=== PATIENT | female | born 1990 | race Caucasian/White ===

== ENCOUNTER 2017-04-05 20:23 | Emergency (ER) | payer SELFPAY ==
[~2017-04-05] VITALS: Ht 162.6 cm; Wt 136.1 kg
[~2017-04-05 20:23] MED LIST: AMLO5TAB2 PO; AMOX500C2 PO; CPH250CIP PO; CPR500T PO; CYCL10TA9 PO; DCS100C PO; FERR-57 PO; HYDR-2854 PO; HYDR-757 PO; IBP600T1 PO; METR500T PO; NAPR-243 PO; PNV1CAPS13 PO; SULFA TOP
[2017-04-05] MEDS ORDERED: IBUPROFEN 800 MG (MOTRIN) TAB PO STA (21:28)
[2017-04-05] MEDS ORDERED: IBUP-1780 PO (21:35)
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
[2017-04-05 21:45] VITALS: BP 132/76
--- NOTE | 2017-04-05 21:48 | Diagnostic Imaging Report ---
EXAM: Shoulder, right, 3 views. INDICATION: Shoulder injury. COMPARISON: None. FINDINGS: No fracture or malalignment. Soft tissue shadows are unremarkable. IMPRESSION: Negative right shoulder radiographs. Dictated by: Dictated on workstation # [id number]
--- OUTSIDE RECORDS SUMMARY | 2017-04-13 02:13 | XMS REPORT ---
Author Author SKY MACHADO [facility] eClinicalWorks Address Unknown Phone Unavailable Care Team Providers Care Industrial Court Magistrate Name Role Phone SKY MACHADO Unavailable Allergies, Adverse Reactions, Alerts Substance Reaction Event Type N.K.D.A. 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) w/o abn findings Z01.419 Active Assessment Morbid (severe) obesity due to excess calories E66.01 Active Problem Acanthosis nigricans L83 Active Problem Insomnia, unspecified G47.00 Active Problem History of female hirsutism Z87.898 Active Problem Morbid (severe) obesity due to excess calories E66.01 Active Problem IUD (intrauterine device) in place Z97.5 Active Problem Dysmetabolic syndrome E88.81 Active Problem Arthropathy M12.9 Active Assessment History of irregular menstrual bleeding Z87.42 Active Assessment Acanthosis nigricans L83 Active Assessment History of female hirsutism Z87.898 Active Assessment Vaginal discharge N89.8 Active Medications Medication Code System Code Instructions Start Date End Date Status Dosage IUD's NDC 0 not defined Flagyl [facility] [address]-77 500 MG Orally 2 times a day Jul 23, 2015 Jul 30, 2015 1 tablet Procedures Procedure Coding System Code Date GLYCATED HEMOGLOBIN TEST CPT-4 43776 Jul 23, 2015 ASSAY OF TOTAL TESTOSTERONE CPT-4 86134 Jul 23, 2015 COMPREHEN METABOLIC PANEL CPT-4 79909 Jul 23, 2015 Preventive Care Est Pt. Age 18-39 CPT-4 08042 Jul 23, 2015 VENIPUNCT, ROUTINE* CPT-4 36947 Jul 23, 2015 GONADOTROPIN (FSH) CPT-4 14821 Jul 23, 2015 GONADOTROPIN (LH) CPT-4 12350 Jul 23, 2015 DEHYDROEPIANDROSTERONE CPT-4 13360 Jul 23, 2015 ASSAY OF PROLACTIN CPT-4 89220 Jul 23, 2015 Vital Signs Date/Time: Jul 23, 2015 Temperature 97.0 F Weight 415.3 lbs Height 64 in BMI 71.28 Index Blood Pressure Diastolic 80 mmHg Blood Pressure Systolic 126 mmHg Results Name Result Date Reference Range Unit Abnormality Flag ROUTINE VENIPUNCTURE Summary Purpose eClinicalWorks Submission
--- OUTSIDE RECORDS SUMMARY | 2017-04-13 02:13 | XMS REPORT ---
Author Author SKY MACHADO [facility] eClinicalWorks Address Unknown Phone Unavailable Care Team Providers Care Sulfur Burner Name Role Phone SKY MACHADO Unavailable Allergies No Known Allergies Problems Problem Type Condition Code Onset Dates Condition Status Problem Acanthosis nigricans L83 Active Problem Insomnia, unspecified G47.00 Active Problem History of female hirsutism Z87.898 Active Problem Morbid (severe) obesity due to excess calories E66.01 Active Problem IUD (intrauterine device) in place Z97.5 Active Problem Dysmetabolic syndrome E88.81 Active Problem Arthropathy M12.9 Active Medications No Known Medications Results No Known Results Summary Purpose eClinicalWorks Submission
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
--- OUTSIDE RECORDS SUMMARY | 2017-04-13 02:13 | XMS REPORT ---
Author Author SKY MACHADO [facility] eClinicalWorks Address Unknown Phone Unavailable Care Team Providers Care Sales Representative Raw Fibers Name Role Phone SKY MACHADO Unavailable Allergies, Adverse Reactions, Alerts Substance Reaction Event Type N.K.D.A. Info Not Available Non Drug Allergy Problems Problem Type Condition Code Onset Dates Condition Status Assessment Weight gain R63.5 Active Assessment Urinary urgency R39.15 Active Assessment Morbid (severe) obesity due to excess calories E66.01 Active Problem Dysmetabolic syndrome E88.81 Active Problem Arthropathy M12.9 Active Problem Insomnia, unspecified G47.00 Active Assessment test negative Z32.02 Active Assessment Urinary frequency R35.0 Active Problem Morbid (severe) obesity due to excess calories E66.01 Active Problem IUD (intrauterine device) in place Z97.5 Active Assessment Vaginal discharge N89.8 Active Assessment Pap smear for cervical cancer screening Z12.4 Active Assessment Abdominal pressure R10.9 Active Assessment Screening for STD (sexually transmitted disease) Z11.3 Active Assessment IUD (intrauterine device) in place Z97.5 Active Medications Medication Code System Code Instructions Start Date End Date Status Dosage IUD's NDC 0 not defined Procedures Procedure Coding System Code Date VENIPUNCT, ROUTINE* CPT-4 77372 Jul 21, 2015 Office Visit, Est Pt., Level 4 CPT-4 19341 Jul 21, 2015 CHORIONIC GONADOTROPIN ASSAY CPT-4 38913 Jul 21, 2015 URINALYSIS, AUTO, W/O SCOPE CPT-4 80526 Jul 21, 2015 URINE TEST CPT-4 46881 Jul 21, 2015 ACUTE HEPATITIS PANEL CPT-4 09426 Jul 21, 2015 SPECIMEN HANDLING CPT-4 66241 Jul 21, 2015 CULTURE, BACTERIA, OTHER CPT-4 25435 Jul 21, 2015 ASSAY THYROID STIM HORMONE CPT-4 27378 Jul 21, 2015 URINE CULTURE/COLONY COUNT CPT-4 84376 Jul 21, 2015 TRICHOMONAS VAGIN, DIR PROBE CPT-4 62225 Jul 21, 2015 No Charge CPT-4 56674 Jul 21, 2015 Vital Signs Date/Time: Jul 21, 2015 Cardiac Monitoring Heart Rate 84 bpm Weight 418.3 lbs Height 64 in BMI 71.79 Index Blood Pressure Diastolic 86 mmHg Blood Pressure Systolic 138 mmHg Results Name Result Date Reference Range Unit Abnormality Flag TEST, URINE (IN HOUSE) TSH Summary Purpose eClinicalWorks Submission
== END 2017-04-05 21:45 | disposition home or self-care (01) ==
LOC: EDUNIT# 20:23 → ER 20:27
DX: S46.911A Strain of unspecified muscle, fascia and tendon at shoulder and upper arm level, right arm, initial encounter (principal); F17.200 Nicotine dependence, unspecified, uncomplicated; Y09 Assault by unspecified means
CPT/HCPCS: 73030; 99283

== ENCOUNTER 2018-11-05 19:40 | Emergency (ER) | payer SELFPAY ==
[~2018-11-05] VITALS: Ht 162.6 cm; Wt 154.2 kg
--- OUTSIDE RECORDS SUMMARY | 2018-11-05 19:45 | XMS REPORT ---
Author Author [facility] Address [address] [place] [address] Care Team Providers Care Pyrotechnics Press Tender Name Role Phone ANNA LIM Unavailable PROBLEMS Type Condition ICD9-CM Code RHL92-WL Code Onset Dates Condition Status SNOMED Code Problem Accessory skin tags Q82.8 Active 71014129 Problem History of female hirsutism Z87.898 Active 399913371 Problem Morbid (severe) obesity due to excess calories E66.01 Active 879607859 Problem Acanthosis nigricans L83 Active 803953989 Problem Dysmetabolic syndrome E88.81 Active 492168735 ALLERGIES No Known Allergies ENCOUNTERS Encounter Location Date Diagnosis [facility] [id number] [place] [address] 15 Jul, 2018 [facility] [id number] [place] [address] Jul, Body mass index (BMI) 70 or greater, adult Z68.45 and Morbid (severe) obesity due to excess calories E66.01 [place] [id number] [place] [address] Apr, Dysuria R30.0 ; History of female hirsutism Z87.898 ; Morbid (severe) obesity due to excess calories E66.01 and Body mass index (BMI) 70 or greater, adult Z68.45 [place] [address] [address] Nov, Accessory skin tags Q82.8 and Body mass index (BMI) 70 or greater, adult Z68.45 [place] [id number] [place] [address]- [address] 26 Sep, 2016 Encounter for IUD removal Z30.432 and Family planning counseling Z30.09 [facility] [address], [place] [address] 18 Sep, 2016 Screen for STD (sexually transmitted disease) Z11.3 ; Dysuria R30.0 ; Trichomoniasis of vagina A59.01 and Acute cystitis with hematuria N30.01 [facility] [address] [place] [id number] 06 Feb, 2016 Dental examination Z01.20 [facility] [id number] [place] [address]- [address] 17 Jul, 2015 [place] [address] [address] 05 Jul, 2015 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) (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) w/o abn findings Z01.419 ; Morbid (severe) obesity due to excess calories E66.01 ; Family history of diabetes mellitus Z83.3 ; Vaginal discharge N89.8 ; History of female hirsutism Z87.898 ; Acanthosis nigricans L83 and History of irregular menstrual bleeding Z87.42 [facility] [address] [place] [address] 03 Jul, 2015 test negative Z32.02 ; Urinary frequency R35.0 ; Urinary urgency R39.15 ; Morbid (severe) obesity due to excess calories E66.01 ; Weight gain R63.5 ; IUD (intrauterine device) in place Z97.5 ; Abdominal pressure R10.9 ; Pap smear for cervical cancer screening Z12.4 ; Vaginal discharge N89.8 and Screening for STD sexually transmitted disease Z11.3 [place] [address] [place] [address] Dec, [facility] [address] [address] January, [facility] [id number] [place] [address] January, [facility] [id number] [place] [address] Dec, [facility] [place] [facility] [address] [id number] [place] [address] Dec, [facility] [place] [facility] [address] [id number] [place] [address] Nov, [facility] [place] [facility] [address] [facility] [id number] [place] [address] Nov, [facility] [place] [facility] [address] [id number] [place] [address] Nov, [facility] [place] [facility] [address] [id number] [place] [address] Nov, [facility] [place] [facility] [address] [id number] [place] [address] Nov, [facility] [place] [facility] [address] [id number] [place] [address] Nov, [facility] [place] [facility] [address] [id number] [place] [address] Oct, [facility] [place] [facility] [address] [id number] [place] [address] Oct, [facility] [place] [facility] [address] [id number] [place] [address] Sep, [facility] [place] [facility] [address] [id number] [place] [address] Sep, [facility] [place] [facility] [address] [id number] [place] [address] Aug, [facility] [place] [facility] [address] [id number] [place] [address] Aug, [facility] [place] [facility] [address] [id number] [place] [address] Jul, [facility] [place] [facility] [address] [facility] [id number] [place] [address] Jul, [facility] [place] [facility] [address] [facility] [id number] [place] [address] 03 May, 2013 [facility] [address] [facility] [id number] [address] 14 Aug, 2012 [facility] [address] [facility] [id number] [address] 14 Aug, 2012 [facility] [address] [facility] [id number] [address] 13 May, 2012 [facility] [address] [facility] [id number] [address] 13 May, 2012 IMMUNIZATIONS No Known Immunizations SOCIAL HISTORY Never Assessed REASON FOR VISIT follow up, had been here in April to discuss her weight issues Estephania Finn MA, Is taking OTC medication called true vision. PLAN OF CARE Activity Details Follow Up 3 Months Reason:[facility] VITAL SIGNS Height 64 in 2018-07-26 Weight 448.8 lbs 2018-07-26 Temperature 97.7 degrees Fahrenheit 2018-07-26 Heart Rate 88 bpm 2018-07-26 Respiratory Rate 20 2018-07-26 BMI 77.03 kg/m2 2018-07-26 Blood pressure systolic 138 mmHg 2018-07-26 Blood pressure diastolic 76 mmHg 2018-07-26 MEDICATIONS Medication Instructions Dosage Frequency Start Date End Date Duration Status Ibuprofen 800 MG Orally q 8 hours Active RESULTS No Results PROCEDURES No Known procedures INSTRUCTIONS MEDICATIONS ADMINISTERED No Known Medications MEDICAL (GENERAL) HISTORY Type Description Date Medical History Obesiety Medical History Insulin Resistant, pt reported Surgical History section x 1 Hospitalization History child only
--- OUTSIDE RECORDS SUMMARY | 2018-11-05 19:46 | XMS REPORT ---
Author Author MOI BRIAN Organization [facility] Address [address] [place] [address] Care Team Providers Care French Teacher Name Role Phone BRIAN PRATER Unavailable PROBLEMS Type Condition ICD9-CM Code ZHP61-II Code Onset Dates Condition Status SNOMED Code Problem Acanthosis nigricans L83 Active 132968005 Problem History of female hirsutism Z87.898 Active 582738096 Problem Morbid (severe) obesity due to excess calories E66.01 Active 048151514 Problem Dysmetabolic syndrome E88.81 Active 274219643 ALLERGIES Substance Reaction Event Type Date Status N.K.D.A. Unknown Non Drug Allergy Sep, Unknown SOCIAL HISTORY No smoking Hx information available PLAN OF CARE Activity Details Follow Up prn Reason: VITAL SIGNS Height 64 in 2016-10-05 Weight 404.2 lbs 2016-10-05 Temperature 97.8 degrees Fahrenheit 2016-10-05 Heart Rate 80 bpm 2016-10-05 Respiratory Rate 22 2016-10-05 BMI 69.37 kg/m2 2016-10-05 Blood pressure systolic 130 mmHg 2016-10-05 Blood pressure diastolic 80 mmHg 2016-10-05 MEDICATIONS Medication Instructions Dosage Frequency Start Date End Date Duration Status IUD's Active Metronidazole 500 MG Orally Once a day 4 tablet 24h Sep, Sep, 1 days Active Bactrim DS 800-160 MG Orally Twice a day 1 tablet 12h Sep,Sep 5 days Active RESULTS Name Result Date Reference Range CULTURE, GENITAL 2016-10-05 Genital Culture, Routine Final report Result 1 Result 2 Yeast isolated. Result 3 CULTURE, URINE 2016-10-05 Urine Culture, Routine Final report Result 1 TRICHOMONAS (IN HOUSE) 2016-10-05 TRICHOMONAS Positive Control + Lot # [id number] Exp date 2017 03 UA LONG DIP (IN HOUSE) 2016-10-05 Lot # [id number] Exp date 10/18/17 Clarity clear Color yellow Odor no GLU negative PARK negative KET negative SG 1.025 BLO trace-lysed pH 7.0 Protein 1+ URO 0.2 NIT negative NATA 3+ Lot # [id number] Exp date 10/2017 BACTERIAL VAGINOSIS (IN HOUSE) 2016-10-05 RESULTS negative Control + Lot # [id number] Exp date 2017 05 GC/CHLAM URINE (STATE) 2016-10-05 CHLAMYDIA Negative GC Negative HEP C ANTIBODY (STATE) 2016-10-05 RESULTS non reactive SYPHILIS (STATE) 2016-10-05 HIV (STATE) 2016-10-05 HEP B SURFACE ANTIGEN (STATE) 2016-10-05 HEP B ANTIBODY non reactive HEP B ANTIBODY (RML) HEP B ANTIBODY (STATE) PROCEDURES Procedure Date Ordered Related Diagnosis Body Site No Charge Oct 05, 2016 RUBIN VAG, DNA, DIR PROBE Oct 05, 2016 URINALYSIS, AUTO, W/O SCOPE Oct 05, 2016 LAB NOT BILLED BY [facility] Oct 05, 2016 Office Visit, Est Pt., Level 3 Oct 05, 2016 VENIPUNCT, ROUTINE* Oct 05, 2016 IMMUNIZATIONS No Known Immunizations
--- OUTSIDE RECORDS SUMMARY | 2018-11-05 19:46 | XMS REPORT ---
Author Author ANNA LIM Organization [facility] [place] Address [address] [place] [address] Care Team Providers Care Internet Assessor Name Role Phone ANNA LIM Unavailable PROBLEMS Type Condition ICD9-CM Code JME78-LT Code Onset Dates Condition Status SNOMED Code Problem Accessory skin tags Q82.8 Active 84316298 Problem History of female hirsutism Z87.898 Active 482211123 Problem Morbid (severe) obesity due to excess calories E66.01 Active 708635656 Problem Acanthosis nigricans L83 Active 151146223 Problem Dysmetabolic syndrome E88.81 Active 502123369 ALLERGIES No Known Allergies ENCOUNTERS Encounter Location Date Diagnosis [facility] [place] [address] [address] Apr, Dysuria R30.0 ; History of female hirsutism Z87.898 ; Morbid (severe) obesity due to excess calories E66.01 and Body mass index (BMI) 70 or greater, adult Z68.45 [facility] [place] [address] [address] Nov, Accessory skin tags Q82.8 and Body mass index (BMI) 70 or greater, adult Z68.45 [facility] [place] [address] [address] Sep, Encounter for IUD removal Z30.432 and Family planning counseling Z30.09 [facility] [address] [address] Sep, Screen for STD (sexually transmitted disease) Z11.3 ; Dysuria R30.0 ; Trichomoniasis of vagina A59.01 and Acute cystitis with hematuria N30.01 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) (routine) w/o abn findings Z01.419 ; Morbid (severe) obesity due to excess calories E66.01 ; Family history of diabetes mellitus Z83.3 ; Vaginal discharge N89.8 ; History of female hirsutism Z87.898 ; Acanthosis nigricans L83 and History of irregular menstrual bleeding Z87.42 [facility] [id number] [place] [address] 03 Jul, 2015 test negative Z32.02 ; Urinary frequency R35.0 ; Urinary urgency R39.15 ; Morbid (severe) obesity due to excess calories E66.01 ; Weight gain R63.5 ; IUD (intrauterine device) in place Z97.5 ; Abdominal pressure R10.9 ; Pap smear for cervical cancer screening Z12.4 ; Vaginal discharge N89.8 and Screening for STD sexually transmitted disease Z11.3 [facility] [id number] [place] [address] Dec, [place] [id number] [place] [address] January, [facility] [id number] [place] [address] January, [facility] [place] [id number] [place] [address] Dec, [facility] [place] [address] [address] Dec, [facility] [place] [id number] [place] [address] Nov, [facility] [place] [address] [address] Nov, [facility] [place] [facility] [address] [id number] [place] [address] Nov, [facility] [place] [facility] [address] [id number] [place] [address] Nov, [facility] [place] [facility] [address] [id number] [place] [address] Nov, [facility] [place] [facility] [address] [id number] [place] [address] Nov, [facility] [place] [facility] [address] [id number] [place] [address] Oct, [facility] [place] [facility] [address] [id number] [place] [address] Oct, [facility] [place] [facility] [address] [id number] [place] [address] Sep, [facility] [place] [facility] [address] [id number] [place] [address] Sep, [facility] [place] [facility] [address] [id number] [place] [address] Aug, [facility] [place] [facility] [address] [id number] [place] [address] Aug, [facility] [place] [facility] [address] [id number] [place] [address] Jul, [facility] [place] [facility] [address] [id number] [place] [address] Jul, [facility] [place] [facility] [address] [id number] [place] [address] 03 May, 2013 [facility] [place] [facility] [address] [id number] [place] [address] 14 Aug, 2012 [facility] [place] [facility] [address] [id number] [place] [address] 14 Aug, 2012 [facility] [place] [facility] [address] [facility] [id number] [place] [address] May, [facility] [address] [facility] [id number] [address] May, IMMUNIZATIONS No Known Immunizations SOCIAL HISTORY Never Assessed REASON FOR VISIT Establish Care., Lower back pain, and left knee pain., Pt says she has drank lots of water to flush out her kidneys because she thinks she has a UTI and says her urine is dark in color and has a foul odor., Pt is concerned about possibility of , unknown last period. -[place] PLAN OF CARE Activity Details Follow Up 3 months or as indicated by lab Reason: Pending Test TEST, URINE (IN HOUSE) VITAL SIGNS Height 64 in 2018-05-09 Weight 433.3 lbs 2018-05-09 Temperature 98.6 degrees Fahrenheit 2018-05-09 Heart Rate 92 bpm 2018-05-09 Respiratory Rate 22 2018-05-09 BMI 74.37 kg/m2 2018-05-09 Blood pressure systolic 158 mmHg 2018-05-09 Blood pressure diastolic 82 mmHg 2018-05-09 MEDICATIONS Medication Instructions Dosage Frequency Start Date End Date Duration Status Ibuprofen 800 MG Orally q 8 hours Active RESULTS No Results PROCEDURES Procedure Date Ordered Result Body Site URINALYSIS, AUTO, W/O SCOPE May 09, 2018 URINE TEST May 09, 2018 URINE CULTURE/COLONY COUNT May 09, 2018 INSTRUCTIONS MEDICATIONS ADMINISTERED No Known Medications MEDICAL (GENERAL) HISTORY Type Description Date Medical History Obesiety Medical History Insulin Resistant, pt reported Surgical History section x 1 Hospitalization History child only
--- OUTSIDE RECORDS SUMMARY | 2018-11-05 19:46 | XMS REPORT ---
Author Author KVNG LUIS E Organization [facility] Address [address] [place] [address] Care Team Providers Care Eligibility Technician Name Role Phone LUIS E CALDERON Unavailable PROBLEMS Type Condition ICD9-CM Code MYN38-UG Code Onset Dates Condition Status SNOMED Code Problem Accessory skin tags Q82.8 Active 60413008 Problem History of female hirsutism Z87.898 Active 215318325 Problem Morbid (severe) obesity due to excess calories E66.01 Active 415263151 Problem Acanthosis nigricans L83 Active 778611499 Problem Dysmetabolic syndrome E88.81 Active 610896275 ALLERGIES No Known Allergies ENCOUNTERS Encounter Location Date Diagnosis [facility] [address] [address] Nov, Accessory skin tags Q82.8 and Body mass index (BMI) 70 or greater, adult Z68.45 [facility] [address] [address] 26 Sep, 2016 Encounter for IUD removal Z30.432 and Family planning counseling Z30.09 [facility] [id number] [place] [address] 18 Sep, 2016 Screen for STD (sexually transmitted disease) Z11.3 ; Dysuria R30.0 ; Trichomoniasis of vagina A59.01 and Acute cystitis with hematuria N30.01 [facility] [address] [id number] Feb, Dental examination Z01.20 [facility] [address] [address] Jul, [facility] [address] [place] [address] Jul, 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) (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) w/o abn findings Z01.419 ; Morbid (severe) obesity due to excess calories E66.01 ; Family history of diabetes mellitus Z83.3 ; Vaginal discharge N89.8 ; History of female hirsutism Z87.898 ; Acanthosis nigricans L83 and History of irregular menstrual bleeding Z87.42 [place] [address] [address] 03 Jul, 2015 test negative Z32.02 ; Urinary frequency R35.0 ; Urinary urgency R39.15 ; Morbid (severe) obesity due to excess calories E66.01 ; Weight gain R63.5 ; IUD (intrauterine device) in place Z97.5 ; Abdominal pressure R10.9 ; Pap smear for cervical cancer screening Z12.4 ; Vaginal discharge N89.8 and Screening for STD sexually transmitted disease Z11.3 [place] [address] [address] Dec, [facility] [address] [address] January, [facility] [address] [address] January, [facility] [id number] [place] [address] Dec, [facility] [id number] [place] [address] Dec, [facility] [id number] [place] [address] Nov, [facility] [address] [address] Nov, [facility] [address] [address] Nov, [facility] [id number] [place] [address] Nov, [place] [address] [id number] [place] [address] Nov, [facility] [address] [facility] [id number] [place] [address] Nov, [facility] [address] [facility] [id number] [place] [address] Oct, [facility] [address] [facility] [id number] [place] [address] Oct, [facility] [address] [facility] [id number] [place] [address] Sep, [facility] [address] [facility] [id number] [place] [address] Sep, [facility] [address] [facility] [id number] [place] [address] Aug, [facility] [address] [facility] [id number] [place] [address] Aug, [facility] [address] [facility] [id number] [place] [address] Jul, [facility] [address] [facility] [id number] [address] Jul, [facility] [address] [facility] [id number] [place] [address] May, [facility] [address] [facility] [id number] [place] [address] 14 Aug, 2012 [facility] [address] [facility] [id number] [place] [address] 14 Aug, 2012 [facility] [address] [facility] [id number] [place] [address] 13 May, 2012 [facility] [address] [facility] [id number] [place] [address] 13 May, 2012 IMMUNIZATIONS No Known Immunizations SOCIAL HISTORY Never Assessed REASON FOR VISIT skin tag removal to left lower eyelid. Klaird, RN PLAN OF CARE Activity Details Follow Up 3 Months Reason:est care VITAL SIGNS Height 64 in 2017-12-04 Weight 418 lbs 2017-12-04 Temperature 98 degrees Fahrenheit 2017-12-04 Heart Rate 88 bpm 2017-12-04 Respiratory Rate 20 2017-12-04 BMI 71.74 kg/m2 2017-12-04 Blood pressure systolic 126 mmHg 2017-12-04 Blood pressure diastolic 80 mmHg 2017-12-04 MEDICATIONS Medication Instructions Dosage Frequency Start Date End Date Duration Status Topamax Nov, Active IUD's Not-Taking Phentermine HCl Nov, Active RESULTS No Results PROCEDURES Procedure Date Ordered Result Body Site SKIN TAG REM 10-022017-12-04 N/A REMOVAL OF SKIN TAGS December 04, 2017 INSTRUCTIONS MEDICATIONS ADMINISTERED No Known Medications MEDICAL (GENERAL) HISTORY Type Description Date Surgical History section Hospitalization History child only
--- OUTSIDE RECORDS SUMMARY | 2018-11-05 19:46 | XMS REPORT ---
Author Author LOUISA GORMAN [facility] Address [address] [place] [address] Care Team Providers Care Garment Fitter Name Role Phone LOUISA GORMAN Unavailable PROBLEMS Type Condition ICD9-CM Code HHC84-FJ Code Onset Dates Condition Status SNOMED Code Problem Acanthosis nigricans L83 Active 690127347 Problem History of female hirsutism Z87.898 Active 411368227 Problem Morbid (severe) obesity due to excess calories E66.01 Active 386910497 Problem Dysmetabolic syndrome E88.81 Active 605545145 ALLERGIES No Known Allergies SOCIAL HISTORY Never Assessed PLAN OF CARE Activity Details Follow Up prn Reason: VITAL SIGNS Height 64 in 2016-10-13 Weight 402.0 lbs 2016-10-13 Temperature 98.0 degrees Fahrenheit 2016-10-13 BMI 69.00 kg/m2 2016-10-13 Blood pressure systolic 142 mmHg 2016-10-13 Blood pressure diastolic 86 mmHg 2016-10-13 MEDICATIONS No Known Medications RESULTS No Results PROCEDURES Procedure Date Ordered Result Body Site REMOVE INTRAUTERINE DEVICE Oct 13, 2016 IMMUNIZATIONS No Known Immunizations MEDICAL (GENERAL) HISTORY Type Description Date Surgical History section Hospitalization History child only
--- OUTSIDE RECORDS SUMMARY | 2018-11-05 19:46 | XMS REPORT | Continuity of Care Document ---
Author Author [facility] Organization [facility] Address Unknown Phone Unavailable Care Team Providers Care Vessel Slagman Name Role Phone IZA PEREZ DO PP Insurance Providers Payer Name Policy Number Subscriber Name Relationship [facility] [id number] Vanita Pearson 01 Self / Same As Patient Advance Directives Directive Response Recorded Date Advance Directives N 03/20/13 9:09am Organ Donor N 03/20/13 9:09am Problems No Known Problems or Medical conditions. Social History History Response Recorded Date/Time Alcohol Use Denies Use 11/15/12 1:06am Recreational Drug Use Y HX OF THC 1:06am Allergies, Adverse Reactions, Alerts Allergen Type Severity Reaction Last Updated No Known Drug Allergies 08/23/10 Medications Medication Dose Units Route Sig Qty Days Hydroxyzine HCl (Hydroxyzine 10 Mg Tablet) 1 Each PO DAILY Docusate Sodium (Colace) 100 Mg PO BID PRN 30 Pnv Comb.no58/Iron Bisgly/Fa ( Capsule) 1 Each PO DAILY [Sulfa 6 % Topical] 0 TOP Q HS 3 Amoxicillin 1 Each PO BID Naproxen (Naprosyn) 1 Each PO TID PRN 20 Cyclobenzaprine HCl (Cyclobenzaprine Hcl) 1 Each PO Q8HR PRN 15 Immunizations Name Given Type Date of Influenza Vaccine 08/20/12 H Response Recorded Date/Time Status not known Unknown Results Test Date Result Interp. Ref. Range Alanine Aminotransferase (ALT/SGPT) October 22, 2012 4: 42pm 36 U/L N 30-65 Albumin October 22, 2012 4:42pm 3.5 G/ DL N 3.4-5.0 Alkaline Phosphatase October 22, 2012 4:42pm 76 U/L N 50-136 Aspartate Amino Transf (AST/SGOT) October 22, 2012 4:42pm 15 U/L N 15-37 BUN/Creatinine Ratio October 22, 2012 4:42pm 11 - Basophils # (Auto) October 22, 2012 4:42pm 0.0 10^3/uL N 0.0-0.1 Basophils (%) (Auto) October 22, 2012 4:42pm 0 % N 0-10 Blood Urea Nitrogen October 22, 2012 4:42pm 8 MG/DL N 7-18 Calcium Level October 22, 2012 4:42pm 8.9 MG/DL N 8.5-10.1 Carbon Dioxide Level October 22, 2012 4:42pm 24 MMOL/L N 21-32 Chloride Level October 22, 2012 4:42pm 101 MMOL/L N 101-110 Cholesterol Level September 16, 2008 8:43am 168 MG/DL N -200 Cortisol AM Sample September 16, 2008 8:43am 9.6 UG/DL - Creatinine October 22, 2012 4:42pm 0.7 MG/DL N 0.6-1.3 Eosinophils # (Auto) October 22, 2012 4:42pm 0.1 10^3/uL N 0.0-0.3 Eosinophils (%) (Auto) October 22, 2012 4:42pm 1 % N 0-10 Fasting Glucose September 16, 2008 8:11am 1920 97 - Free Thyroxine September 16, 2008 8:43am 1.02 NG/DL N 0.59-1.17 Glucose 1 Hour September 16, 2008 8:11am 6240 196 - Glucose 1/2 Hour September 16, 2008 8:11am 4440 163 - Glucose 2 Hour September 16, 2008 8:11am 9540 126 - Glucose Level October 22, 2012 4:42pm 86 MG/DL N 74-106 HDL Cholesterol September 16, 2008 8:43am 36 MG/DL N 35-60 Hematocrit October 22, 2012 4:42pm 38 % N 35-52 Hemoglobin October 22, 2012 4:42pm 13.3 G/DL N 11.5-16.0 Hemoglobin A1c September 16, 2008 8:43am 5.5 % - Human Chorionic Gonadotropin, Quant October 22, 2012 4: 42pm 20454 MIU/ML H - 6 Insulin Level September 16, 2008 8:43am 38.0 h mU/L - LDL Cholesterol September 16, 2008 8:43am 115 MG/DL N 0-129 Lymphocytes # (Auto) October 22, 2012 4:42pm 2.2 X 10^3 N 1.0-4.0 Lymphocytes (%) (Auto) October 22, 2012 4:42pm 17 % N 12-44 Mean Corpuscular Hemoglobin October 22, 2012 4:42pm 31 PG N 25-34 Mean Corpuscular Hemoglobin Concent October 22, 2012 4: 42pm 35 G/DL N 32-36 Mean Corpuscular Volume October 22, 2012 4:42pm 87 FL N 80-99 Mean Platelet Volume October 22, 2012 4:42pm 10.4 FL N 7.4-10.4 Monocytes # (Auto) October 22, 2012 4:42pm 0.6 X 10^3 N 0.0-1.0 Monocytes (%) (Auto) October 22, 2012 4:42pm 5 % N 0-12 Monoscreen July 05, 2006 6:04pm Negative - Neutrophils # (Auto) October 22, 2012 4:42pm 10.4 X 10^3 H 1.8-7.8 Neutrophils (%) (Auto) October 22, 2012 4:42pm 78 % H 42-75 Platelet Count October 22, 2012 4:42pm 272 10^3/uL N 130-400 Potassium Level October 22, 2012 4:42pm 4.0 MMOL/L N 3.6-5.0 Red Blood Count October 22, 2012 4:42pm 4.33 10^6/uL L 4.35-5.85 Red Cell Distribution Width October 22, 2012 4:42pm 12.5 % N 10.0-14.5 Sodium Level October 22, 2012 4:42pm 134 MMOL/L L 135-145 Thyroid Stimulating Hormone (TSH) September 16, 2008 8:43am 1.14 UIU/ML N 0.34- 5.60 Total Bilirubin October 22, 2012 4:42pm 0.2 MG/DL N 0.0-1.0 Total Protein October 22, 2012 4:42pm 7.3 G/DL N 6.4-8.2 Triglycerides Level September 16, 2008 8:43am 83 MG/DL N 30.0-150.0 Urine Bacteria October 22, 2012 3:55pm NEGATIVE /HPF - Urine Bilirubin October 22, 2012 3:55pm NEGATIVE - Urine Casts October 22, 2012 3:55pm NONE /LPF - Urine Clarity October 22, 2012 3:55pm CLEAR - Urine Color October 22, 2012 3:55pm YELLOW - Urine Crystals October 22, 2012 3:55pm NONE /LPF - Urine Culture Indicated October 22, 2012 3:55pm NO - Urine Glucose (UA) October 22, 2012 3:55pm NEGATIVE - Urine Ketones October 22, 2012 3:55pm NEGATIVE - Urine Leukocyte Esterase October 22, 2012 3:55pm TRACE H - Urine Mucus October 22, 2012 3:55pm NEGATIVE /LPF - Urine Nitrite October 22, 2012 3:55pm NEGATIVE - Urine Protein October 22, 2012 3:55pm TRACE - Urine RBC October 22, 2012 3:55pm NONE /HPF - Urine Specific [place] October 22, 2012 3:55pm 1.020 - Urine Squamous Epithelial Cells October 22, 2012 3:55pm 5-10 /HPF - Urine Urobilinogen October 22, 2012 3:55pm NORMAL MG/DL - Urine WBC October 22, 2012 3:55pm RARE /HPF - Urine pH October 22, 2012 3:55pm 8 - VLDL Cholesterol September 16, 2008 8:43am 17 MG/DL N 5-40 White Blood Count October 22, 2012 4:42pm 13.4 10^3/uL H 4.3-11.0 Lab Scanned Report January 13, 2009 4:26pm LAB Reports [id number] - Estimat Glomerular Filtration Rate October 22, 2012 4:42pm > 60 - Testosterone Level September 16, 2008 8:43am 19 NG/DL - Urine RBC (Auto) October 22, 2012 3:55pm NEGATIVE - Procedures Procedure Code Date APPLY FOREARM SPLINT [id number] 06/09/07 Encounters Encounter Location Date/Time Departed Emergency Room [facility] 12:40am
--- OUTSIDE RECORDS SUMMARY | 2018-11-05 19:47 | XMS REPORT | Continuity of Care Document ---
Author Author [facility] Organization [facility] Address Unknown Phone Unavailable Care Team Providers Care Industrial Relations Manager Name Role Phone IZA PEREZ DO PP Insurance Providers Payer Name Policy Number Subscriber Name Relationship [facility] [id number] Vanita Pearson 01 Self / Same As Patient Advance Directives Directive Response Recorded Date Advance Directives N 06/15/13 7:42am Organ Donor N 06/15/13 7:42am Problems Medical Problem Onset Date Anemia in mother complicating , childbirth AND/OR puerperium 06/05/13 SEV PREECLAMP-DEL W P/P 06/05/13 Body mass index 30+ - obesity 06/05/13 Family History History Response Recorded Date/Time Hx Family Cancer Y 06/03/13 2:08pm Hx Family Cardiac Disorders Y 06/03/13 2: 08pm Hx Family Stroke Y 06/03/13 2:08pm Hx Family Hypertension Y 06/03/13 2:08pm Social History History Response Recorded Date/Time Alcohol Use Denies Use 06/15/13 7:42am Recreational Drug Use N HX OF THC 7:42am Recent Infectious Disease Exposure N 7:42am Sexually Transmitted Disease N 06/15/13 7 :42am HIV/AIDS N 06/15/13 7:42am Allergies, Adverse Reactions, Alerts Allergen Type Severity Reaction Last Updated No Known Drug Allergies 08/23/10 Medications Medication Dose Units Route Sig Qty Days Metronidazole (Flagyl 500 Mg) 1 Each PO BID 7 Ciprofloxacin (Cipro) 1 Tab PO BID 7 Amlodipine Besylate 5 Mg PO DAILY 60 Ferrous Sulfate 325 Mg PO DAILY 30 Ibuprofen (Motrin) 600 Mg PO Q6H PRN 40 Docusate Sodium (Colace Cap) 100 Mg PO BID 20 Hydrocodone Bit/Acetaminophen ([place] 5-325 Tablet) 2 Each PO Q6H PRN 30 Pnv Comb.no58/Iron Bisgly/Fa ( Capsule) 1 Each PO DAILY Cephalexin Hcl (Keflex Capsule) 500 Mg PO QID 28 Hydroxyzine HCl (Hydroxyzine 10 Mg Tablet) 1 Each PO DAILY Docusate Sodium (Colace) 100 Mg PO BID PRN 30 [Sulfa 6 % Topical] 0 TOP Q HS 3 Amoxicillin 1 Each PO BID Naproxen (Naprosyn) 1 Each PO TID PRN 20 Cyclobenzaprine HCl (Cyclobenzaprine Hcl) 1 Each PO Q8HR PRN 15 Immunizations Name Given Type Date of Influenza Vaccine 08/20/12 H Tdap 05/25/13 A Response Recorded Date/Time Status not known Unknown Results No Known Relevant Diagnostic Tests, Laboratory Data and/or Discharge Summary. Procedures Procedure Code Date APPLY FOREARM SPLINT 06456 06/09/07 LOW CERVICAL 74.1 05/23/13 OTHER INSTILLATION 96.49 05/22/13 Encounters Encounter Location Date/Time Departed Emergency Room [facility] 7:33am Discharged Inpatient [facility] 1:28pm
--- OUTSIDE RECORDS SUMMARY | 2018-11-05 19:47 | XMS REPORT | Continuity of Care Document ---
Author Author [facility] Organization [facility] Address Unknown Phone Unavailable Care Team Providers Care Lap Machine Operator Name Role Phone IZA PEREZ DO PP Insurance Providers Payer Name Policy Number Subscriber Name Relationship [facility] [id number] Vanita Pearson 01 Self / Same As Patient Advance Directives Directive Response Recorded Date Advance Directives N 05/22/13 3:00pm Organ Donor N 05/22/13 3:00pm Problems No Known Problems or Medical conditions. Family History History Response Recorded Date/Time Hx Family Cancer Y 05/22/13 3:00pm Hx Family Cardiac Disorders Y 05/22/13 3: 00pm Hx Family Stroke Y 05/22/13 3:00pm Hx Family Hypertension Y 05/22/13 3:00pm Social History History Response Recorded Date/Time Alcohol Use Denies Use 05/22/13 3:00pm Recreational Drug Use N HX OF THC 3:00pm Recent Infectious Disease Exposure N 01/28 8:54am Sexually Transmitted Disease N 05/23/13 8 :54am HIV/AIDS N 05/23/13 8:54am Allergies, Adverse Reactions, Alerts Allergen Type Severity Reaction Last Updated No Known Drug Allergies 08/23/10 Medications Medication Dose Units Route Sig Qty Days Ferrous Sulfate 325 Mg PO DAILY 30 Ibuprofen (Motrin) 600 Mg PO Q6H PRN 40 Hydrocodone Bit/Acetaminophen ([place] 5-325 Tablet) 2 Each PO Q6H PRN 30 Docusate Sodium (Colace Cap) 100 Mg PO BID 20 Pnv Comb.no58/Iron Bisgly/Fa ( Capsule) 1 Each [...] Result Interp. Ref. Range Alanine Aminotransferase (ALT/SGPT) May 22, 2013 3: 15pm 31 U/L N 30-65 Albumin May 22, 2013 3:15pm 2.5 G/ DL L 3.4-5.0 Alkaline Phosphatase May 22, 2013 3:15pm 108 U/L N 50-136 Aspartate Amino Transf (AST/SGOT) May 22, 2013 3:15pm 18 U/L N 15-37 BUN/Creatinine Ratio May 22, 2013 3:15pm 13 - Band Neutrophils May 22, 2013 3:15pm 0 % - Basophils # (Auto) May 22, 2013 3:15pm 0.0 10^3/uL N 0.0-0.1 Basophils % (Manual) May 22, 2013 3:15pm 0 % - Basophils (%) (Auto) May 22, 2013 3:15pm 0 % N 0-10 Blood Urea Nitrogen May 22, 2013 3:15pm 8 MG/DL N 7-18 Calcium Level May 22, 2013 3:15pm 9.4 MG/DL N 8.5-10.1 Carbon Dioxide Level May 22, 2013 3:15pm 21 MMOL/L N 21-32 Chloride Level May 22, 2013 3:15pm 101 MMOL/L N 101-110 Cholesterol Level September 16, 2008 8:43am 168 MG/DL N -200 Cortisol AM Sample September 16, 2008 8:43am 9.6 UG/DL - Creatinine May 22, 2013 3:15pm 0.6 MG/DL N 0.6-1.3 Eosinophils # (Auto) May 22, 2013 3:15pm 0.1 10^3/uL N 0.0-0.3 Eosinophils % (Manual) May 22, 2013 3:15pm 0 % - Eosinophils (%) (Auto) May 22, 2013 3:15pm 0 % N 0-10 Fasting Glucose September 16, 2008 8:11am 1920 97 - Free Thyroxine September 16, 2008 8:43am 1.02 NG/DL N 0.59-1.17 Glucose 1 Hour September 16, 2008 8:11am 6240 196 - Glucose 1/2 Hour September 16, 2008 8:11am 4440 163 - Glucose 2 Hour September 16, 2008 8:11am 9540 126 - Glucose Level May 22, 2013 3:15pm 80 MG/DL N 74-106 HDL Cholesterol September 16, 2008 8:43am 36 MG/DL N 35-60 Hematocrit May 22, 2013 3:15pm 37 % N 35-52 Hemoglobin May 22, 2013 3:15pm 12.8 G/DL N 11.5-16.0 Hemoglobin A1c September 16, 2008 8:43am 5.5 % - Human Chorionic Gonadotropin, Quant October 22, 2012 4: 42pm 38064 MIU/ML H - 6 Insulin Level September 16, 2008 8:43am 38.0 h mU/L - LDL Cholesterol September 16, 2008 8:43am 115 MG/DL N 0-129 Lactate Dehydrogenase May 22, 2013 3:15pm 130 U/L N 115-218 Lymphocytes # (Auto) May 22, 2013 3:15pm 1.8 X 10^3 N 1.0-4.0 Lymphocytes % (Manual) May 22, 2013 3:15pm 11 % - Lymphocytes (%) (Auto) May 22, 2013 3:15pm 12 % N 12-44 Mean Corpuscular Hemoglobin May 22, 2013 3:15pm 30 PG N 25-34 Mean Corpuscular Hemoglobin Concent May 22, 2013 3: 15pm 35 G/DL N 32-36 Mean Corpuscular Volume May 22, 2013 3:15pm 86 FL N 80-99 Mean Platelet Volume May 22, 2013 3:15pm 10.9 FL H 7.4-10.4 Monocytes # (Auto) May 22, 2013 3:15pm 0.6 X 10^3 N 0.0-1.0 Monocytes % (Manual) May 22, 2013 3:15pm 5 % - Monocytes (%) (Auto) May 22, 2013 3:15pm 4 % N 0-12 Monoscreen July 05, 2006 6:04pm Negative - Neutrophils # (Auto) May 22, 2013 3:15pm 12.5 X 10^3 H 1.8-7.8 Neutrophils % (Manual) May 22, 2013 3:15pm 83 % - Neutrophils (%) (Auto) May 22, 2013 3:15pm 84 % H 42-75 Platelet Count May 22, 2013 3:15pm 289 10^3/uL N 130-400 Potassium Level May 22, 2013 3:15pm 4.2 MMOL/L N 3.6-5.0 Reactive Lymphocytes May 22, 2013 3:15pm 1 % - Red Blood Count May 22, 2013 3:15pm 4.29 10^6/uL L 4.35-5.85 Red Cell Distribution Width May 22, 2013 3:15pm 13.7 % N 10.0-14.5 Sodium Level May 22, 2013 3:15pm 133 MMOL/L L 135-145 Thyroid Stimulating Hormone (TSH) September 16, 2008 8:43am 1.14 UIU/ML N 0.34- 5.60 Total Bilirubin May 22, 2013 3:15pm 0.2 MG/DL N 0.0-1.0 Total Protein May 22, 2013 3:15pm 6.7 G/DL N 6.4-8.2 Triglycerides Level September 16, 2008 8:43am 83 MG/DL N 30.0-150.0 Uric Acid May 22, 2013 3:15pm 5.3 MG/DL N 2.6-7.2 Urine Bacteria May 22, 2013 3:00pm MODERATE /HPF H - Urine Bilirubin May 22, 2013 3:00pm NEGATIVE - Urine Casts May 22, 2013 3:00pm NONE /LPF - Urine Clarity May 22, 2013 3:00pm CLEAR - Urine Color May 22, 2013 3:00pm YELLOW - Urine Crystals May 22, 2013 3:00pm NONE /LPF - Urine Culture Indicated May 22, 2013 3:00pm YES - Urine Glucose (UA) May 22, 2013 3:00pm NEGATIVE - Urine Ketones May 22, 2013 3:00pm NEGATIVE - Urine Leukocyte Esterase May 22, 2013 3:00pm 3+ H - Urine Mucus May 22, 2013 3:00pm SMALL /LPF H - Urine Nitrite May 22, 2013 3:00pm NEGATIVE - Urine Protein May 22, 2013 3:00pm 1 + H - Urine RBC May 22, 2013 3:00pm 0-2 /HPF - Urine Specific [place] May 22, 2013 3:00pm 1.010 L - Urine Squamous Epithelial Cells May 22, 2013 3:00pm 25-50 /HPF H - Urine Urobilinogen May 22, 2013 3:00pm NORMAL MG/DL - Urine WBC May 22, 2013 3:00pm 10- 25 /HPF H - Urine pH May 22, 2013 3:00pm 7 - VLDL Cholesterol September 16, 2008 8:43am 17 MG/DL N 5-40 White Blood Count May 22, 2013 3:15pm 14.9 10^3/uL H 4.3-11.0 Lab Scanned Report January 13, 2009 4:26pm LAB Reports [id number] - Estimat Glomerular Filtration Rate October 22, 2012 4:42pm > 60 - Blood Morphology Comment May 22, 2013 3:15pm NORMAL - Testosterone Level September 16, 2008 8:43am 19 NG/DL - Urine RBC (Auto) May 22, 2013 3:00pm 1+ H - Procedures Procedure Code Date APPLY FOREARM SPLINT [id number] 06/09/07 Urine Culture 05/22/13 Encounters Encounter Location Date/Time Discharged Inpatient [facility] 1:57pm Departed Emergency Room [facility] 12:40am
--- OUTSIDE RECORDS SUMMARY | 2018-11-05 19:47 | XMS REPORT | Continuity of Care Document ---
Author Author [facility] Organization [facility] Address Unknown Phone Unavailable Care Team Providers Care Sports Medicine Specialist Name Role Phone IZA PEREZ DO PP Insurance Providers Payer Name Policy Number Subscriber Name Relationship [facility] [id number] Vanita Pearson 01 Self / Same As Patient Advance Directives Directive Response Recorded Date Advance Directives N 04/16/13 11:59pm Organ Donor N 04/16/13 11:59pm Problems No Known Problems or Medical conditions. Social History History Response Recorded Date/Time Alcohol Use Denies Use 11/15/12 1:06am Recreational Drug Use Y HX OF THC 1:06am Allergies, Adverse Reactions, Alerts Allergen Type Severity Reaction Last Updated No Known Drug Allergies 08/23/10 Medications Medication Dose Units Route Sig Qty Days Pnv Comb.no58/Iron Bisgly/Fa ( Capsule) 1 Each PO DAILY Hydroxyzine HCl (Hydroxyzine 10 Mg Tablet) 1 [...] Gonadotropin, Quant October 22, 2012 4: 42pm 88987 MIU/ML H - 6 Insulin Level September [...] 8:43am 83 MG/DL N 30.0-150.0 Urine Bacteria March 20, 2013 9:15am FEW /HPF H - Urine Bilirubin March 20, 2013 9:15am NEGATIVE - Urine Casts March 20, 2013 9:15am NONE / LPF - Urine Clarity March 20, 2013 9:15am CLEAR - Urine Color March 20, 2013 9:15am YELLOW - Urine Crystals March 20, 2013 9:15am NONE /LPF - Urine Culture Indicated March 20, 2013 9:15am NO - Urine Glucose (UA) March 20, 2013 9:15am NEGATIVE - Urine Ketones March 20, 2013 9:15am NEGATIVE - Urine Leukocyte Esterase March 20, 2013 9:15am 1+ H - Urine Mucus March 20, 2013 9:15am NEGATIVE /LPF - Urine Nitrite March 20, 2013 9:15am NEGATIVE - Urine Protein March 20, 2013 9:15am NEGATIVE - Urine RBC March 20, 2013 9:15am NONE / HPF - Urine Specific [place] March 20, 2013 9:15am 1.015 L - Urine Squamous Epithelial Cells March 20, 2013 9:15am 2-5 /HPF - Urine Urobilinogen March 20, 2013 9:15am NORMAL MG/DL - Urine WBC March 20, 2013 9:15am RARE / HPF - Urine pH March 20, 2013 9:15am 6.5 - VLDL Cholesterol September 16, 2008 8:43am 17 MG/DL N 5-40 White Blood Count October 22, 2012 4:42pm 13.4 10^3/uL H 4.3-11.0 Lab Scanned Report January 13, 2009 4:26pm LAB Reports [id number] - Estimat Glomerular Filtration Rate October 22, 2012 4:42pm > 60 - Testosterone Level September 16, 2008 8:43am 19 NG/DL - Urine RBC (Auto) March 20, 2013 9:15am NEGATIVE - Procedures Procedure Code Date APPLY FOREARM SPLINT [id number] 06/09/07 Urine Culture 03/20/13 Encounters Encounter Location Date/Time Departed Emergency Room [facility] 12:40am
--- OUTSIDE RECORDS SUMMARY | 2018-11-05 19:47 | XMS REPORT | Continuity of Care Document ---
Author Author [facility] Organization [facility] Address Unknown Phone Unavailable Care Team Providers Care Internetworking Technician Name Role Phone IZA PEREZ DO PP Insurance Providers Payer Name Policy Number Subscriber Name Relationship [facility] [id number] Vanita Pearson 01 Self / Same As Patient Advance Directives Directive Response Recorded Date Advance Directives N 05/17/13 6:50pm Organ Donor N 05/17/13 6:50pm Problems No Known Problems or Medical conditions. Social History History Response Recorded Date/Time Alcohol Use Denies Use 11/15/12 1:06am Recreational Drug Use Y HX OF THC 1:06am Allergies, Adverse Reactions, Alerts Allergen Type Severity Reaction Last Updated No Known Drug Allergies 08/23/10 Medications Medication Dose Units Route Sig Qty Days Cephalexin Hcl (Keflex Capsule) 500 Mg PO QID 28 Pnv Comb.no58/Iron Bisgly/Fa ( Capsule) 1 Each [...] Gonadotropin, Quant October 22, 2012 4: 42pm 08276 MIU/ML H - 6 Insulin Level September [...] 9:15am NONE / HPF - Urine Specific [place] March 20, 2013 9:15am 1.015 L - [...] Report January 13, 2009 4:26pm LAB Reports [id number] - Estimat Glomerular Filtration Rate October 22, 2012 4:42pm > 60 - Testosterone Level September 16, 2008 8:43am 19 NG/DL - Urine RBC (Auto) March 20, 2013 9:15am NEGATIVE - Procedures Procedure Code Date APPLY FOREARM SPLINT 10964 06/09/07 Urine Culture 03/20/13 Encounters Encounter Location Date/Time Departed Emergency Room [facility] 12:40am
--- OUTSIDE RECORDS SUMMARY | 2018-11-05 19:48 | XMS REPORT | Continuity of Care Document ---
Author Author [facility] Organization [facility] Address Unknown Phone Unavailable Care Team Providers Care County Supervisor Name Role Phone IZA PEREZ DO PP Insurance Providers Payer Name Policy Number Subscriber Name Relationship [facility] [id number] Vanita Pearson 01 Self / Same As Patient Advance Directives Directive Response Recorded Date Advance Directives N 06/03/13 2:08pm Organ Donor N 05/22/13 3:00pm Problems Medical Problem Onset Date Anemia in [...] Response Recorded Date/Time Alcohol Use Denies Use 06/03/13 2:08pm Recreational Drug Use N HX OF THC 2:08pm Recent Infectious Disease Exposure N 2:08pm Sexually Transmitted Disease N 06/03/13 2 :08pm HIV/AIDS N 06/03/13 2:08pm Allergies, Adverse Reactions, Alerts Allergen Type Severity Reaction Last Updated No Known Drug Allergies 08/23/10 Medications Medication Dose Units Route Sig Qty Days Amlodipine Besylate 5 Mg PO DAILY 60 Ferrous Sulfate 325 Mg PO DAILY 30 Ibuprofen (Motrin) 600 Mg PO Q6H PRN 40 Hydrocodone Bit/Acetaminophen ([place] 5-325 Tablet) 2 Each PO Q6H PRN [...] 0 % - Basophils # (Auto) May 24, 2013 5:28am 0.0 10^3/uL N 0.0-0.1 Basophils % (Manual) May 22, 2013 3:15pm 0 % - Basophils (%) (Auto) May 24, 2013 5:28am 0 % N 0-10 Blood Urea Nitrogen [...] MG/DL N 0.6-1.3 Eosinophils # (Auto) May 24, 2013 5:28am 0.1 10^3/uL N 0.0-0.3 Eosinophils % (Manual) May 22, 2013 3:15pm 0 % - Eosinophils (%) (Auto) May 24, 2013 5:28am 0 % N 0-10 Fasting Glucose September [...] 8:43am 36 MG/DL N 35-60 Hematocrit May 24, 2013 5:28am 30 % L 35-52 Hemoglobin May 24, 2013 5:28am 10.4 G/DL L 11.5-16.0 Hemoglobin A1c September 16, 2008 8:43am 5.5 % - Human Chorionic Gonadotropin, Quant October 22, 2012 4: 42pm 02498 MIU/ML H - 6 Insulin Level September 16, 2008 8:43am 38.0 h mU/L - LDL Cholesterol September 16, 2008 8:43am 115 MG/DL N 0-129 Lactate Dehydrogenase May 22, 2013 3:15pm 130 U/L N 115-218 Lymphocytes # (Auto) May 24, 2013 5:28am 1.7 X 10^3 N 1.0-4.0 Lymphocytes % (Manual) May 22, 2013 3:15pm 11 % - Lymphocytes (%) (Auto) May 24, 2013 5:28am 13 % N 12-44 Mean Corpuscular Hemoglobin May 24, 2013 5:28am 30 PG N 25-34 Mean Corpuscular Hemoglobin Concent May 24, 2013 5: 28am 35 G/DL N 32-36 Mean Corpuscular Volume May 24, 2013 5:28am 87 FL N 80-99 Mean Platelet Volume May 24, 2013 5:28am 10.9 FL H 7.4-10.4 Monocytes # (Auto) May 24, 2013 5:28am 0.7 X 10^3 N 0.0-1.0 Monocytes % (Manual) May 22, 2013 3:15pm 5 % - Monocytes (%) (Auto) May 24, 2013 5:28am 5 % N 0-12 Monoscreen July 05, 2006 6:04pm Negative - Neutrophils # (Auto) May 24, 2013 5:28am 10.4 X 10^3 H 1.8-7.8 Neutrophils % (Manual) May 22, 2013 3:15pm 83 % - Neutrophils (%) (Auto) May 24, 2013 5:28am 82 % H 42-75 Platelet Count May 24, 2013 5:28am 210 10^3/uL N 130-400 Potassium Level May 22, 2013 3:15pm 4.2 MMOL/L N 3.6-5.0 Reactive Lymphocytes May 22, 2013 3:15pm 1 % - Red Blood Count May 24, 2013 5:28am 3.45 10^6/uL L 4.35-5.85 Red Cell Distribution Width May 24, 2013 5:28am 13.6 % N 10.0-14.5 Sodium Level May 22, [...] 2013 3:00pm 0-2 /HPF - Urine Specific [place] May 22, 2013 3:00pm 1.010 L - Urine Squamous Epithelial Cells May 22, 2013 3:00pm 25-50 /HPF H - Urine Urobilinogen May 22, 2013 3:00pm NORMAL MG/DL - Urine WBC May 22, 2013 3:00pm 10- 25 /HPF H - Urine pH May 22, 2013 3:00pm 7 - VLDL Cholesterol September 16, 2008 8:43am 17 MG/DL N 5-40 White Blood Count May 24, 2013 5:28am 12.8 10^3/uL H 4.3-11.0 Lab Scanned Report January 13, 2009 4:26pm LAB Reports [id number] - Estimat Glomerular Filtration Rate October 22, 2012 4:42pm > 60 - Blood Morphology Comment May 22, 2013 3:15pm NORMAL - Testosterone Level September 16, 2008 8:43am 19 NG/DL - Urine RBC (Auto) May 22, 2013 3:00pm 1+ H - Procedures Procedure Code Date APPLY FOREARM SPLINT [id number] 06/09/07 LOW CERVICAL 74.1 05/23/13 OTHER INSTILLATION 96.49 05/22/13 Urine Culture 05/22/13 Encounters Encounter Location Date/Time Discharged Inpatient [facility] 1:28pm Departed Emergency Room [facility] 12:40am
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
--- NOTE | 2018-11-05 20:01 | ED Cough/URI ---
General Chief Complaint: Cough/Cold/Flu Symptoms Stated Complaint: COUGH, FEVER, VOMITING Source: patient, family Exam Limitations: no limitations History of Present Illness Date Seen by Provider: Nov 05, 2018 Time Seen by Provider: 19:59 Initial Comments To ER with a 3 to four-day history of cough, chills, body aches including thigh pain bilaterally, intermittent nausea and diarrhea. She has been exposed to influenza. Timing/Duration: constant Associated Symptoms: cough, fever/chills, nasal congestion, nasal drainage Allergies and Home Medications Allergies Coded Allergies: No Known Drug Allergies (Unverified , 08/23/10) Home Medications Amlodipine Besylate 5 Mg Tablet, 5 MG PO DAILY Prescribed by: IZA PEREZ on 06/05/13 0911 Ciprofloxacin 500 Mg Tablet, 1 TAB PO BID Prescribed by: NAYELY QUINTERO on 06/15/13 0936 Docusate Sodium 100 Mg Cap, 100 MG PO BID Prescribed by: ALTAF SLADE on 05/25/13 1045 Ferrous Sulfate 325 Mg Tablet, 325 MG PO DAILY Prescribed by: ALTAF SLADE on 05/25/13 1045 Ibuprofen 600 Mg Tab, 600 MG PO Q6H PRN Prescribed by: ALTAF SLADE on 05/25/13 1045 Ibuprofen 800 Mg Tablet, 800 MG PO Q8H PRN for PAIN Prescribed by: JENNA GROSSMAN on 04/05/17 213 Metronidazole 500 Mg Tab, 1 EACH PO BID Prescribed by: NAYELY QUINTERO on 06/15/13 0936 Patient Home Medication List Home Medication List Reviewed: Yes Review of Systems Review of Systems Constitutional: see HPI, chills, malaise, weakness EENTM: see HPI Respiratory: see HPI, cough Cardiovascular: no symptoms reported Genitourinary: no symptoms reported Musculoskeletal: no symptoms reported Skin: no symptoms reported Psychiatric/Neurological: No Symptoms Reported Hematologic/Lymphatic: No Symptoms Reported Past Fldclml-Uolwhe-Ktqzwh Hx Patient Social History Recent Foreign Travel: No Contact w/Someone Who Travel: No Immunizations Up To Date Tetanus Booster (TDap): Unknown Date of Influenza Vaccine: Aug 20, 2012 Seasonal Allergies Seasonal Allergies: No Past Medical History Surgeries: Yes (05/2013) Section Respiratory: No Cardiac: No Neurological: No Reproductive Disorders: No Sexually Transmitted Disease: No HIV/AIDS: No Gastrointestinal: Yes Chronic Constipation Musculoskeletal: No Endocrine: No Cancer: No Psychosocial: No Integumentary: No Blood Disorders: No Physical Exam Vital Signs - First Documented 11/05/18 11/05/18 20:00 20:35 Temp 98.2 Pulse 84 Resp 20 B/P (MAP) 189/105 (133) Pulse Ox 99 O2 Delivery Room Air Capillary Refill : Height: 5'4.00" Weight: 300lbs. oz. 136.716521ou; BMI Method:Stated General Appearance: WD/WN, no apparent distress, obese Eyes: Bilateral Eye Normal Inspection, Bilateral Eye PERRL, Bilateral Eye EOMI HEENT: PERRL/EOMI, normal ENT inspection, TMs normal, pharynx normal Neck: non-tender, full range of motion Respiratory: normal breath sounds, no respiratory distress, no accessory muscle use Cardiovascular: regular rate, rhythm, no murmur Gastrointestinal: normal bowel sounds, non tender, soft Extremities: normal range of motion, non-tender Neurologic/Psychiatric: alert, normal mood/affect, oriented x 3 Skin: normal color, warm/dry Progress/Results/Core Measures Suspected Sepsis SIRS Temperature: Pulse: Respiratory Rate: Blood Pressure / Mean: Results/Orders Micro Results Microbiology 11/05/18 Influenza Types A,B Antigen (JANETH) - Final, Complete My Orders Orders - CARI HANLEY APRN Chest Pa/Lat (2 View) (11/05/18 19:58) Influenza A And B Antigens (11/05/18 19:58) Urine Bedside (11/05/18 20:12) Vital Signs/I&O 11/05/18 11/05/18 20:00 20:35 Temp 98.2 Pulse 84 Resp 20 B/P (MAP) 189/105 (133) Pulse Ox 99 O2 Delivery Room Air Capillary Refill : Departure Impression Primary Impression: Viral syndrome Disposition: 01 HOME, SELF-CARE Condition: Stable Departure-Patient Inst. Decision time for Depature: 20:43 Referrals: NO,LOCAL PHYSICIAN (PCP/Family) Primary Care Physician Patient Instructions: VIRAL SYNDROME Add. Discharge Instructions: 1. Tylenol and Motrin for body aches 2. Drink plenty of fluids 3. All discharge instructions reviewed with patient and/or family. Voiced understanding. CARI HANLEY APRN Nov 05, 2018 20:01
--- NOTE | 2018-11-05 20:33 | Diagnostic Imaging Report ---
INDICATION: Cough, fever, and congestion. PA and lateral views were obtained. FINDINGS: The heart size, mediastinal configuration, and pulmonary vascularity are within normal limits. There is no pleural effusion, pneumothorax, or pneumonia. The osseous structures are unremarkable. IMPRESSION: No acute cardiopulmonary abnormality. Dictated by: Dictated on workstation # [id number]
[2018-11-05] MEDS ORDERED: diphenhydrAMINE 12.5 MG/5 ML UDC (BENADRYL) PO ONE (20:45)
[2018-11-05 20:48] VITALS: BP 172/90
== END 2018-11-05 20:48 | disposition home or self-care (01) ==
LOC: EDUNIT# 19:40 → ER 19:42
DX: B34.9 Viral infection, unspecified (principal); Z98.890 Other specified postprocedural states; Z87.19 Personal history of other diseases of the digestive system
CPT/HCPCS: 71046; 84703; 87804

== ENCOUNTER 2019-04-03 07:34 | Emergency (ER) | payer SELFPAY ==
[~2019-04-03] VITALS: Ht 162.6 cm; Wt 172.4 kg
[~2019-04-03 07:34] MED LIST changes: +IBUP-1780 PO
--- OUTSIDE RECORDS SUMMARY | 2019-04-03 07:47 | XMS REPORT ---
Author Author Migration, Doctor Organization [facility] Address Unknown Phone Unavailable Care Team Providers Care Base Engineer Name Role Phone Migration, Doctor Unavailable Unavailable PROBLEMS Type Condition ICD9-CM Code [id number] Code Onset Dates Condition Status SNOMED Code Problem History of female hirsutism Z87.898 Active 748451469 Problem Accessory skin tags Q82.8 Active 21709236 Problem Morbid (severe) obesity due to excess calories E66.01 Active 539756423 Problem Dysmetabolic syndrome E88.81 Active 078684554 Problem Acanthosis nigricans L83 Active 037784601 ALLERGIES No Information ENCOUNTERS Encounter Location Date Diagnosis [address] [address] Sep, Peripheral edema R60.[address] [address] Sep, Dysmetabolic syndrome E88.[address] [address] Sep, Morbid (severe) obesity due to excess calories E66.01 and History of female hirsutism Z87.898 [place] [address] [address] Jul, Body mass index (BMI) 70 or greater, adult Z68.45 and Morbid (severe) obesity due to excess calories E66.01 [place] [address] [address] Apr, Dysuria R30.0 ; History of female hirsutism Z87.898 ; Morbid (severe) obesity due to excess calories E66.01 ; Body mass index (BMI) 70 or greater, adult Z68.45 and Morbid obesity E66.01 [place] [address] [address] 19 Nov, 2017 Accessory skin tags Q82.8 and Body mass index (BMI) 70 or greater, adult Z68.45 [place] [address] [address] 26 Sep, 2016 Encounter for IUD removal Z30.432 and Family planning counseling Z30.09 [facility] [address] [address] 18 Sep, 2016 Screen for STD (sexually transmitted disease) Z11.3 ; Dysuria R30.0 ; Trichomoniasis of vagina A59.01 and Acute cystitis with hematuria N30.01 [facility] [address] [id number] Feb, 2016 Dental examination Z01.[address] [address] 17 Jul, [address] [address] 05 Jul, 2015 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 (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) (routine) w/o abn findings Z01.419 ; Morbid (severe) obesity due to excess calories E66.01 ; Family history of diabetes mellitus Z83.3 ; Vaginal discharge N89.8 ; History of female hirsutism Z87.898 ; Acanthosis nigricans L83 and History of irregular menstrual bleeding Z87.[address] [address] 03 Jul, 2015 test negative Z32.02 ; Urinary frequency R35.0 ; Urinary urgency R39.15 ; Morbid (severe) obesity due to excess calories E66.01 ; Weight gain R63.5 ; IUD (intrauterine device) in place Z97.5 ; Abdominal pressure R10.9 ; Pap smear for cervical cancer screening Z12.4 ; Vaginal discharge N89.8 and Screening for STD sexually transmitted disease Z11.[address] [address] Dec, [facility] [address] [id number] [place] [address] January, [facility] [place] [facility] [address] [id number] [place] [address] January, [facility] [place] [facility] [address] [id number] [place] [address] Dec, [facility] [place] [facility] [address] [id number] [place] [address] Dec, [facility] [place] [facility] [address] [id number] [place] [address] Nov, [facility] [place] [facility] [address] [id number] [place] [address] Nov, [facility] [place] [facility] [address] [id number] [place] [address] Nov, [facility] [place] [facility] [address] [id number] [place] [address] Nov, [facility] [place] [facility] [address] [id number] [place] [address] Nov, [facility] [place] [facility] [address] [id number] [place] [address] Nov, [facility] [place] [facility] [address] [id number] [place] [address] Oct, [facility] [place] [facility] [address] [id number] [place] [address] Oct, [facility] [place] [facility] [address] [id number] [place] [address] Sep, [facility] [place] [facility] [address] [id number] [place] [address] Sep, [facility] [place] [facility] [address] [id number] [place] [address] Aug, [facility] [place] [facility] [address] [id number] [address] Aug, [facility] [address] [id number] [address] Jul, [facility] [address] [place] [address] Jul, [facility] [address], [place] [address] May, [facility] [address] [place] [address] 14 Aug, 2012 [facility] [address] [id number] [address] Aug, [facility] [address] [place] [address] 13 May, 2012 [facility] [address] [id number] [address] 13 May, 2012 IMMUNIZATIONS No Known Immunizations SOCIAL HISTORY Never Assessed REASON FOR VISIT [facility] PLAN OF CARE VITAL SIGNS MEDICATIONS No Known Medications RESULTS No Results PROCEDURES No Known procedures INSTRUCTIONS MEDICATIONS ADMINISTERED No Known Medications MEDICAL (GENERAL) HISTORY Type Description Date Medical History Obesiety Medical History Insulin Resistant, pt reported Surgical History section x 1 Hospitalization History child only
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
[2019-04-03 08:11] LABS: BILIRUBIN,URINE NEGATIVE (NEGATIVE); CLARITY,URINE CLEAR; COLOR,URINE YELLOW; GLUCOSE, URINE (UA) NEGATIVE (NEGATIVE); KETONES,URINE NEGATIVE (NEGATIVE); LEUKOCYTE ESTERASE ,URINE 2+ (NEGATIVE); NITRITE,URINE NEGATIVE (NEGATIVE); PH,URINE 5 (5-9); PROTEIN,URINE 2+ (NEGATIVE); UROBILINOGEN,URINE NORMAL (NORMAL)
[2019-04-03] MEDS ORDERED: IBUPROFEN 800 MG (MOTRIN) TAB PO ONE (08:15)
--- NOTE | 2019-04-03 08:19 | ED GU-Female ---
General Chief Complaint: Abdominal/GI Problems Stated Complaint: VAGINAL BLEEDING Nursing Triage Note: Pt c/o vaginal spotting for two plus weeks. Pt reports hx of irregular periods. Pt c/o L sided back pain that radiates to the abdomen. Pt requesting test. Nursing Sepsis Screen: No Definite Risk Source: patient, other Exam Limitations: no limitations History of Present Illness Date Seen by Provider: Apr 03, 2019 Time Seen by Provider: 08:02 Initial Comments Patient presents to ER by private conveyance with chief complaint of spotting for the past 2 weeks. She also noticed last week she's had some intermittent abdominal cramping in her pelvis. Radiating towards her back. No history of kidney stones dysuria or hematuria. She says the spotting does not come in today. Anybody about it. She does not have a history of PCO S. She says she's never irregular periods and then she went on control for 3 years. She came off about 2 years ago and has had irregular periods since then. She went to [facility] Rodriguez who did a workup 6 months ago and found her thyroid as well as her chest for PCO S were negative. She has not had a positive home test. She was on [employer] and worried that maybe her spotting is because she is miscarrying. She has had chlamydia before and was adequately treated. She denies any discharge. The patient says the other day she tried to put a tampon in and was exquisitely tender when she put it in. Allergies and Home Medications Allergies Coded Allergies: No Known Drug Allergies (Unverified , 08/23/10) Home Medications Amlodipine Besylate 5 Mg Tablet, 5 MG PO DAILY Prescribed by: IZA PEREZ on 06/05/13 0911 Ciprofloxacin 500 Mg Tablet, 1 TAB PO BID Prescribed by: NAYELY QUINTERO on 06/15/13 0936 Docusate Sodium 100 Mg Cap, 100 MG PO BID Prescribed by: ALTAF SLADE on 05/25/13 1045 Ferrous Sulfate 325 Mg Tablet, 325 MG PO DAILY Prescribed by: ALTAF SLADE on 05/25/13 1045 Ibuprofen 600 Mg Tab, 600 MG PO Q6H PRN Prescribed by: ALTAF SLADE on 05/25/13 1045 Ibuprofen 800 Mg Tablet, 800 MG PO Q8H PRN for PAIN Prescribed by: JENNA GROSSMAN on 7/19/17 2135 Metronidazole 500 Mg Tab, 1 EACH PO BID Prescribed by: NAYELY QUINTERO on 06/15/13 0936 Patient Home Medication List Home Medication List Reviewed: Yes Review of Systems Review of Systems Constitutional: No chills, No fever EENTM: No hearing loss, No ear pain Respiratory: No cough, No short of breath Cardiovascular: No chest pain, No edema Gastrointestinal: see HPI; No abdominal pain, No constipation, No diarrhea Genitourinary: denies burning, denies discharge, denies dysuria, denies hematuria : No Musculoskeletal: No back pain, No joint pain Past Gwxhnfj-Sguktx-Dxlixs Hx Patient Social History Alcohol Use: Rarely Uses Recreational Drug Use: No Smoking Status: Current Everyday Smoker Type Used: Cigarettes Former Smoker, Quit: Oct 22, 2018 2nd Hand Smoke Exposure: Yes Recent Foreign Travel: No Contact w/Someone Who Travel: No Recent Infectious Disease Expo: No Immunizations Up To Date Tetanus Booster (TDap): Unknown Date of Influenza Vaccine: Aug 20, 2012 Seasonal Allergies Seasonal Allergies: No Past Medical History Surgeries: Yes (05/2013) Section Respiratory: No Cardiac: No Neurological: No Reproductive Disorders: No Sexually Transmitted Disease: No HIV/AIDS: No Gastrointestinal: Yes Chronic Constipation Musculoskeletal: No Endocrine: No Cancer: No Psychosocial: No Integumentary: No Blood Disorders: No Physical Exam Vital Signs Vital Signs - First Documented 04/03/19 07:49 Temp 98.0 Pulse 90 Resp 20 B/P (MAP) 191/117 (141) Pulse Ox 98 O2 Delivery Room Air Capillary Refill : Less Than 3 Seconds Height, Weight, BMI Height: 5'4.00" Weight: 380lbs. oz. 172.882183xo; BMI Method:Stated General Appearance: WD/WN, obese HEENT: PERRL/EOMI, normal ENT inspection, TMs normal, pharynx normal Neck: non-tender, full range of motion Cardiovascular: normal peripheral pulses, regular rate, rhythm Respiratory: normal breath sounds, no respiratory distress, no accessory muscle use Gastrointestinal: normal bowel sounds, non tender, soft Neurologic/Psychiatric: alert, normal mood/affect, oriented x 3 Skin: normal color, warm/dry Progress/Results/Core Measures Suspected Sepsis Recent Fever Within 48 Hours: No Infection Criteria Present: None New/Unexplained Altered Menta: No Sepsis Screen: No Definite Risk SIRS Temperature:98.0 Pulse: 90 Respiratory Rate: 20 Blood Pressure 191 /117 Mean: 141 Results/Orders Lab Results Laboratory Tests Test 04/03/19 08:00 Range/Units Urine Color YELLOW Urine Clarity CLEAR Urine pH 5 5-9 Urine Specific [place] 1.020 1.016-1.022 Urine Protein 2+ H NEGATIVE Urine Glucose (UA) NEGATIVE NEGATIVE Urine Ketones NEGATIVE NEGATIVE Urine Nitrite NEGATIVE NEGATIVE Urine Bilirubin NEGATIVE NEGATIVE Urine Urobilinogen NORMAL NORMAL MG/DL Urine Leukocyte Esterase 2+ H NEGATIVE Urine RBC (Auto) 5+ H NEGATIVE Urine RBC 2-5 H /HPF Urine WBC 10-25 H /HPF Urine Squamous Epithelial Cells 2-5 /HPF Urine Crystals NONE /LPF Urine Bacteria FEW H /HPF Urine Casts NONE /LPF Urine Mucus NEGATIVE /LPF Urine Culture Indicated YES My Orders Orders - PALMER FOSTER Ua Culture If Indicated (04/03/19 07:58) Urine Bedside (04/03/19 07:58) Ibuprofen Tablet (Motrin Tablet) (04/03/19 08:15) Azithromycin Tablet (Zithromax Tablet) (04/03/19 08:45) Ceftriaxone For Im Use (Rocephin For Im (04/03/19 08:45) Lidocaine 1% Inj 20 Ml (Xylocaine 1% Inj (04/03/19 08:45) Neis Vaibhav Dna Urine Test (04/03/19 08:31) Chlamydia Trachomatis Urine (04/03/19 08:31) Urine Culture (04/03/19 08:00) Medications Given in ED Current Medications Medications Dose Ordered Sig/Gianni Route Start Time Stop Time Status Last Admin Dose Admin Azithromycin 1,000 mg ONCE ONCE PO 04/03/19 08:45 04/03/19 08:46 04/03/19 08:41 1,000 MG Ceftriaxone Sodium 250 mg ONCE ONCE IM 04/03/19 08:45 04/03/19 08:46 04/03/19 08:43 250 MG Ibuprofen 800 mg ONCE ONCE PO 04/03/19 08:15 04/03/19 08:16 DC 04/03/19 08:17 800 MG Lidocaine HCl 0.9 ml ONCE ONCE INJ 04/03/19 08:45 04/03/19 08:46 04/03/19 08:43 0.9 ML Vital Signs/I&O 04/03/19 07:49 Temp 98.0 Pulse 90 Resp 20 B/P (MAP) 191/117 (141) Pulse Ox 98 O2 Delivery Room Air Capillary Refill : Less Than 3 Seconds Blood Pressure Mean: 141 Progress Note : Time: 08:20 Progress Note Urine is negative. We will suggest she follow up with Angelique Rodriguez or an REHABILITATION ASSISTANT to discuss her vaginal spotting. Plan to give her Rocephin and azithromycin and check chlamydia and gonorrhea after discussing this with the patient and she agrees with the plan. Infection is possible. She says she does not have a history of high blood pressure. Otherwise aseptic vital signs.PID less likely. The patient says she is known to Dr. SLADE because he delivered all her children and she would like to follow up with him. Departure Impression Primary Impression: Abnormal uterine bleeding Additional Impression: Urinary tract infection Qualified Codes: N30.00 - Acute cystitis without hematuria Disposition: HOME, SELF-CARE Condition: Stable Departure-Patient Inst. Decision time for Depature: 08:31 Referrals: ALTAF SLADE,LOCAL PHYSICIAN (PCP) Primary Care Physician Patient Instructions: Absent or Irregular Periods, Urinary Tract Infection, Adult (DC) Add. Discharge Instructions: For your abnormal uterine bleeding you should follow-up with your primary care doctor or custodian blood bank. We'll have the results of your STD testing in 2 days at which time we will call you if they are positive. All discharge instructions reviewed with patient and/or family. Voiced understanding. Scripts Sulfamethoxazole/Trimethoprim (Bactrim Ds Tablet) 1 Each Tablet 1 EACH PO BID for 7 Days, #14 TAB 0 Refills Prov: PALMER FOSTER 04/03/19 Work/School Note: Work Release Form Date Seen in the Emergency Department: Apr 03, 2019 Return to Work: Apr 04, 2019 Restrictions: No Restrictions PALMER FOSTER Apr 03, 2019 08:19
[2019-04-03 08:34] LABS: BACTERIA,URINE FEW /HPF
[2019-04-03] MEDS ORDERED: cefTRIAXone 250 MG/ML vial (IM ONLY) IM ONE (08:45)
[2019-04-03] MEDS ORDERED: AZITHROMYCIN 250 MG TAB (ZITHROMAX) PO ONE (08:45)
[2019-04-03] MEDS ORDERED: LIDOCAINE 1% INJ 20 ML 20 ML VIAL INJ ONE (08:45)
[2019-04-03] MEDS ORDERED: SULF1TAB35 PO (08:51)
[2019-04-03 08:59] VITALS: BP 154/99
[2019-04-03] MEDS ORDERED: IBUP-1780 PO (09:01)
== END 2019-04-03 08:59 | disposition home or self-care (01) ==
LOC: EDUNIT# 07:34 → ER 07:35
DX: N93.9 Abnormal uterine and vaginal bleeding, unspecified (principal); N39.0 Urinary tract infection, site not specified; F17.210 Nicotine dependence, cigarettes, uncomplicated; Z87.19 Personal history of other diseases of the digestive system
CPT/HCPCS: 36415; 81000; 84703; 87088; 87491; 87591; 96372; 99284

== ENCOUNTER 2019-10-05 16:36 | Emergency (ER) | payer SELFPAY ==
[~2019-10-05] VITALS: Ht 162.5 cm; Wt 204.0 kg
[~2019-10-05 16:36] MED LIST changes: +SULF1TAB35 PO
--- NOTE | 2019-10-05 17:44 | ED GI ---
General Chief Complaint: Abdominal/GI Problems Stated Complaint: ABD PAIN, VOMING, DIARRHEA Nursing Triage Note: PT TO ED W/ C/O N/V/D ONSET X3-4 DAYS. REPORTS INTERMITTENT ABD PAIN EVERY 10-15 MIN. DENIES SEEING PCP FOR C/O. Sepsis Screen: No Definite Risk Source of Information: Patient Exam Limitations: No Limitations History of Present Illness Date Seen by Provider: Oct 05, 2019 Time Seen by Provider: 17:30 Initial Comments 3-4 days of nausea vomiting diarrhea with generalized abdominal cramping. She was diagnosed along with her son with influenza B on 09/26/19. Diarrhea is watery without blood or mucus, no fever. Timing/Duration: 1-2 Days Severity/Quality: Moderate, Cramping Location: Generalized Abdomen Radiation: No Radiation Activities at Onset: None Allergies and Home Medications Allergies Coded Allergies: No Known Drug Allergies (Unverified , 08/23/10) Home Medications Amlodipine Besylate 5 Mg Tablet, 5 MG PO DAILY Prescribed by: IZA PEREZ on 06/05/13 0911 Ciprofloxacin 500 Mg Tablet, 1 TAB PO BID Prescribed by: NAYELY QUINTERO on 06/15/13 0936 Docusate Sodium 100 Mg Cap, 100 MG PO BID Prescribed by: ALTAF SLADE on 05/25/13 1045 Ferrous Sulfate 325 Mg Tablet, 325 MG PO DAILY Prescribed by: ALTAF SLADE on 05/25/13 1045 Ibuprofen 600 Mg Tab, 600 MG PO Q6H PRN Prescribed by: ALTAF SLADE on 05/25/13 1045 Ibuprofen 800 Mg Tablet, 800 MG PO Q8H PRN for PAIN Prescribed by: JENNA GROSSMAN on 04/05/17 2135 Ibuprofen 800 Mg Tablet, 800 MG PO Q8H PRN for PAIN-MILD Prescribed by: PALMER FOSTER on 04/03/19 0901 Metronidazole 500 Mg Tab, 1 EACH PO BID Prescribed by: NAYELY QUINTERO on 06/15/13 0936 Sulfamethoxazole/Trimethoprim 1 Each Tablet, 1 EACH PO BID Prescribed by: PALMER FOSTER on 04/03/19 0851 Patient Home Medication List Home Medication List Reviewed: Yes Review of Systems Review of Systems Constitutional: see HPI EENTM: No Symptoms Reported Respiratory: No Symptoms Reported Cardiovascular: No Symptoms Reported Gastrointestinal: See HPI, Abdominal Pain Genitourinary: No Symptoms Reported Musculoskeletal: no symptoms reported Skin: no symptoms reported Psychiatric/Neurological: No Symptoms Reported Endocrine: No Symptoms Reported Hematologic/Lymphatic: No Symptoms Reported Past Ckfkabn-Edeifk-Zlqgxh Hx Patient Social History Alcohol Use: Denies Use Recreational Drug Use: No Smoking Status: Current Everyday Smoker Type Used: Cigarettes Former Smoker, Quit: Oct 22, 2018 2nd Hand Smoke Exposure: Yes Recent Foreign Travel: No Contact w/Someone Who Travel: No Recent Infectious Disease Expo: No Immunizations Up To Date Tetanus Booster (TDap): Unknown Date of Influenza Vaccine: Aug 20, 2012 Seasonal Allergies Seasonal Allergies: No Past Medical History Surgeries: Yes (05/2013) Section Respiratory: No Cardiac: No Neurological: No Reproductive Disorders: No Sexually Transmitted Disease: No HIV/AIDS: No Gastrointestinal: Yes Chronic Constipation Musculoskeletal: No Endocrine: No Cancer: No Psychosocial: No Integumentary: No Blood Disorders: No Physical Exam Vital Signs Vital Signs - First Documented 10/05/19 16:41 Temp 37.1 Pulse 81 Resp 20 B/P (MAP) 162/106 (124) Pulse Ox 97 O2 Delivery Room Air Capillary Refill : Less Than 3 Seconds Height/Weight/BMI Height: 5'4.00" Weight: 380lbs. oz. 172.509383rs; 77.00 BMI Method:Stated General Appearance: WD/WN, no apparent distress HEENT: PERRL/EOMI, normal ENT inspection Respiratory: no respiratory distress, no accessory muscle use Cardiovascular: regular rate, rhythm, no murmur Gastrointestinal: normal bowel sounds, soft Extremities: normal range of motion, non-tender Neurologic/Psychiatric: alert, normal mood/affect, oriented x 3 Skin: normal color, warm/dry Progress/Results/Core Measures Results/Orders Lab Results Laboratory Tests Test 10/05/19 17:25 10/05/19 18:09 Range/Units White Blood Count 12.6 H 4.3-11.0 10^3/uL Red Blood Count 5.21 4.35-5.85 10^6/uL Hemoglobin 14.8 11.5-16.0 G/DL Hematocrit 43 35-52 % Mean Corpuscular Volume 83 80-99 FL Mean Corpuscular Hemoglobin 28 25-34 PG Mean Corpuscular Hemoglobin Concent 34 32-36 G/DL Red Cell Distribution Width 13.8 10.0-14.5 % Platelet Count 370 130-400 10^3/uL Mean Platelet Volume 10.4 7.4-10.4 FL Neutrophils (%) (Auto) 71 42-75 % Lymphocytes (%) (Auto) 20 12-44 % Monocytes (%) (Auto) 6 0-12 % Eosinophils (%) (Auto) 2 0-10 % Basophils (%) (Auto) 0 0-10 % Neutrophils # (Auto) 9.0 H 1.8-7.8 X 10^3 Lymphocytes # (Auto) 2.6 1.0-4.0 X 10^3 Monocytes # (Auto) 0.8 0.0-1.0 X 10^3 Eosinophils # (Auto) 0.2 0.0-0.3 10^3/uL Basophils # (Auto) 0.0 0.0-0.1 10^3/uL Sodium Level 137 135-145 MMOL/L Potassium Level 4.3 3.6-5.0 MMOL/L Chloride Level 101 98-107 MMOL/L Carbon Dioxide Level 21 21-32 MMOL/L Anion Gap 15 H 5-14 MMOL/L Blood Urea Nitrogen 9 7-18 MG/DL Creatinine 0.86 0.60-1.30 MG/DL Estimat Glomerular Filtration Rate > 60 BUN/Creatinine Ratio 10 Glucose Level 148 H 70-105 MG/DL Calcium Level 9.8 8.5-10.1 MG/DL Corrected Calcium 9.6 8.5-10.1 MG/DL Total Bilirubin 0.5 0.1-1.0 MG/DL Aspartate Amino Transf (AST/SGOT) 79 H 5-34 U/L Alanine Aminotransferase (ALT/SGPT) 61 H 0-55 U/L Alkaline Phosphatase 75 40-136 U/L Total Protein 7.8 6.4-8.2 GM/DL Albumin 4.3 3.2-4.5 GM/DL Serum Test, Qualitative NEGATIVE NEGATIVE Urine Color DEV H Urine Clarity SL CLOUDY Urine pH 5.5 5-9 Urine Specific [place] >=1.030 1.016-1.022 Urine Protein 2+ H NEGATIVE Urine Glucose (UA) NEGATIVE NEGATIVE Urine Ketones NEGATIVE NEGATIVE Urine Nitrite NEGATIVE NEGATIVE Urine Bilirubin NEGATIVE NEGATIVE Urine Urobilinogen 0.2 < = 1.0 MG/DL Urine Leukocyte Esterase NEGATIVE NEGATIVE Urine RBC (Auto) 3+ H NEGATIVE Urine RBC 2-5 H /HPF Urine WBC 2-5 /HPF Urine Squamous Epithelial Cells 2-5 /HPF Urine Crystals NONE /LPF Urine Bacteria TRACE /HPF Urine Casts NONE /LPF Urine Mucus NEGATIVE /LPF Urine Culture Indicated NO My Orders Orders - CARI HANLEY APRN Cbc With Automated Diff (10/05/19 17:35) Comprehensive Metabolic Panel (10/05/19 17:35) Ua Culture If Indicated (10/05/19 17:35) Hcg,Qualitative Serum (10/05/19 17:35) Ed Iv/Invasive Line Start (10/05/19 17:35) Hyoscyamine Sl Tablet (Levsin Sl Tablet) (10/05/19 17:45) Ondansetron Injection (Zofran Injectio (10/05/19 17:45) Ns Iv 1000 Ml (Sodium Chloride 0.9%) (10/05/19 17:45) Fentanyl Injection (Sublimaze Injection (10/05/19 18:45) Rx-Ondansetron Po (Rx-Zofran Po) (10/05/19 18:46) Rx-Hydrocodone/Apap 5-325 Mg (Rx-Vicodin (10/05/19 19:00) Medications Given in ED Current Medications Medications Dose Ordered Sig/Gianni Route Start Time Stop Time Status Last Admin Dose Admin Acetaminophen/ Hydrocodone Bitart 1 ea Q4H PRN PO 10/05/19 19:00 10/05/19 19:50 1 EA Fentanyl Citrate 50 mcg ONCE ONCE IVP 10/05/19 18:45 10/05/19 18:46 DC 10/05/19 18:39 50 MCG Hyoscyamine Sulfate 0.25 mg ONCE ONCE PO 10/05/19 17:45 10/05/19 17:46 DC 10/05/19 17:46 0.25 MG Ondansetron HCl 8 mg ONCE ONCE IVP 10/05/19 17:45 10/05/19 17:46 DC 10/05/19 17:45 8 MG Vital Signs/I&O 10/05/19 16:41 Temp 37.1 Pulse 81 Resp 20 B/P (MAP) 162/106 (124) Pulse Ox 97 O2 Delivery Room Air Blood Pressure Mean: 124 Departure Impression Primary Impression: Nausea vomiting and diarrhea Disposition: 01 HOME, SELF-CARE Condition: Stable Departure-Patient Inst. Decision time for Depature: 18:41 Referrals: [facility] (PCP/Family) Primary Care Physician Patient Instructions: [id number] Add. Discharge Instructions: . Clear liquids only for the next 24 hours pain medication as directed which will help with the cramping and the diarrhea. All discharge instructions reviewed with patient and/or family. Voiced understanding. Work/School Note: Work Release Form Date Seen in the Emergency Department: Oct 05, 2019 Return to Work: Oct 07, 2019 CARI HANLEY APRN Oct 05, 2019 17:43
[2019-10-05] MEDS ORDERED: HYOSCYAMINE 0.125 MG (LEVSIN) TAB PO ONE (17:45)
[2019-10-05] MEDS ORDERED: ONDANSETRON 4 MG/2 ML (SDV) Z0FRAN IVP ONE (17:45)
[2019-10-05] MEDS ORDERED: NS IV 1000 ML 1,000 ML IV SCH (17:45)
[2019-10-05 17:58] LABS: BASOPHILS % (AUTO) 0 % (0-10); EOSINOPHILS # (AUTO) 0.2 10^3/uL (0.0-0.3); EOSINOPHILS % (AUTO) 2 % (0-10); HEMATOCRIT 43 % (35-52); HEMOGLOBIN 14.8 G/DL (11.5-16.0); LYMPHOCYTES # (AUTO) 2.6 X 10^3 (1.0-4.0); LYMPHOCYTES % (AUTO) 20 % (12-44); MEAN CORPUSCULAR HEMOGLOBIN 28 PG (25-34); MEAN CORPUSCULAR HGB CONC 34 G/DL (32-36); MEAN CORPUSCULAR VOLUME 83 FL (80-99); MEAN PLATELET VOLUME 10.4 FL (7.4-10.4); MONOCYTES # (AUTO) 0.8 X 10^3 (0.0-1.0); MONOCYTES % (AUTO) 6 % (0-12); NEUTROPHILS % (AUTO) 71 % (42-75); PLATELET COUNT 370 10^3/uL (130-400); RED CELL DISTRIBUTION WIDTH 13.8 % (10.0-14.5); WHITE BLOOD COUNT 12.6 10^3/uL (4.3-11.0)
[2019-10-05 18:13] LABS: ALANINE AMINOTRANSFERASE 61 U/L (0-55); ALBUMIN 4.3 GM/DL (3.2-4.5); ALKALINE PHOSPHATASE 75 U/L (40-136); BILIRUBIN,TOTAL 0.5 MG/DL (0.1-1.0); BUN/CREATININE RATIO 10; CALCIUM 9.8 MG/DL (8.5-10.1); CARBON DIOXIDE 21 MMOL/L (21-32); CHLORIDE 101 MMOL/L (98-107); CREATININE SERUM 0.86 MG/DL (0.60-1.30); GFR ESTIMATED > 60; GLUCOSE 148 MG/DL (70-105); POTASSIUM 4.3 MMOL/L (3.6-5.0); SODIUM 137 MMOL/L (135-145); TOTAL PROTEIN 7.8 GM/DL (6.4-8.2)
[2019-10-05 18:21] LABS: BILIRUBIN,URINE NEGATIVE (NEGATIVE); COLOR,URINE AMBER; GLUCOSE, URINE (UA) NEGATIVE (NEGATIVE); KETONES,URINE NEGATIVE (NEGATIVE); LEUKOCYTE ESTERASE ,URINE NEGATIVE (NEGATIVE); NITRITE,URINE NEGATIVE (NEGATIVE); PH,URINE 5.5 (5-9); PROTEIN,URINE 2+ (NEGATIVE)
[2019-10-05 18:41] LABS: CLARITY,URINE SL CLOUDY
[2019-10-05 18:42] LABS: BACTERIA,URINE TRACE /HPF
[2019-10-05] MEDS ORDERED: fentaNYL INJECTION 100 MCG/2 ML AMP IVP ONE (18:45)
[2019-10-05] MEDS ORDERED: RX-ONDANSETRON 4 MG ODT (ZOFRAN) PPK #4 PO STA (18:46)
--- NOTE | 2019-10-05 18:55 | NUR ---
REPORT GIVEN TO MARIANNE ACEVEDO.
[2019-10-05] MEDS ORDERED: RX-HYDROCODONE/APAP 5/325 MG #4 TAB PK PO PRN (19:00)
[2019-10-05 19:53] VITALS: BP 145/99
== END 2019-10-05 19:57 | disposition home or self-care (01) ==
LOC: EDUNIT# 16:36 → ER 16:39
DX: R11.2 Nausea with vomiting, unspecified (principal); R19.7 Diarrhea, unspecified; F17.210 Nicotine dependence, cigarettes, uncomplicated
CPT/HCPCS: 36415; 80053; 81000; 84703; 85025; 96361; 96374; 96375

== ENCOUNTER 2021-03-20 14:27 | Emergency (ER) | payer SELFPAY ==
[~2021-03-20] VITALS: Ht 162 cm; Wt 176.9 kg
[2021-03-20] MEDS ORDERED: LORazepam INJ 2 MG/ML (ATIVAN) VIAL IVP PRN (14:45)
--- NOTE | 2021-03-20 14:51 | ED Chest Pain ---
General Chief Complaint: Chest Pain Stated Complaint: RAPID HR/CP/BACK PAIN Nursing Triage Note: PT PRESENTS TO ED VIA POV FROM COMPLAINTS OF CP AND L ARM HEAVINESS STARTING JUST PRIOR TO ARRIVAL. PT ALSO REPORTS FEELING ANXIOUS. Source: patient Exam Limitations: no limitations (CARI HANLEY APRN) History of Present Illness Date Seen by Provider: Mar 20, 2021 Time Seen by Provider: 14:45 Initial Comments To ER with reports of chest pain and left arm pain that started just prior to arrival. She states that she feels very anxious though she is not typically an anxious person. She recently quit smoking and started going to the gym. 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 Timing/Duration: changing over time Severity/Quality: moderate Location: central Radiation: no radiation Activities at Onset: none ASA po SINGLE NEEDLE OPERATOR: No NTG SL SINGLE NEEDLE OPERATOR: No (CARI HANLEY APRN) Allergies and Home Medications Allergies Coded Allergies: No Known Drug Allergies (Unverified , 08/23/10) Home Medications Alprazolam 0.5 Mg Tablet, 0.5 MG PO DAILY PRN for ANXIETY Prescribed by: CARI HANLEY on 03/20/21 1555 Amlodipine Besylate 5 Mg Tablet, 5 MG PO DAILY Prescribed by: IZA PEREZ on 06/05/13 0911 Ciprofloxacin 500 Mg Tablet, 1 TAB PO BID Prescribed by: NAYELY QUINTERO on 06/15/13 0936 Docusate Sodium 100 Mg Cap, 100 MG PO BID Prescribed by: ALTAF SLADE on 05/25/13 1045 Ferrous Sulfate 325 Mg Tablet, 325 MG PO DAILY Prescribed by: ALTAF SLADE on 05/25/13 1045 Ibuprofen 600 Mg Tab, 600 MG PO Q6H PRN Prescribed by: ALTAF SLADE on 05/25/13 1045 Ibuprofen 800 Mg Tablet, 800 MG PO Q8H PRN for PAIN Prescribed by: JENNA GROSSMAN on 04/05/17 2135 Ibuprofen 800 Mg Tablet, 800 MG PO Q8H PRN for PAIN-MILD Prescribed by: PALMER FOSTER on 04/03/19 0901 Ibuprofen 800 Mg Tablet, 800 MG PO Q8H PRN for PAIN Prescribed by: CARI HANLEY on 03/20/21 1554 Methocarbamol 750 Mg Tablet, 750 MG PO Q6-8HR PRN for PAIN-MODERATE (5-7) Prescribed by: CARI HANLEY on 03/20/21 1554 Metronidazole 500 Mg Tab, 1 EACH PO BID Prescribed by: NAYELY QUINTERO on 06/15/13 0936 Sulfamethoxazole/Trimethoprim 1 Each Tablet, 1 EACH PO BID Prescribed by: PALMER FOSTER on 04/03/19 0851 Patient Home Medication List Home Medication List Reviewed: Yes (CARI HANLEY APRN) Review of Systems Review of Systems Constitutional: see HPI; No chills, No fever EENTM: No Symptoms Reported Respiratory: No Symptoms Reported Cardiovascular: See HPI, Chest Pain Gastrointestinal: No Symptoms Reported Genitourinary: No Symptoms Reported Musculoskeletal: no symptoms reported Skin: no symptoms reported Psychiatric/Neurological: No Symptoms Reported Endocrine: No Symptoms Reported (CARI HANLEY APRN) Past Rnndmzv-Fmdnsp-[place]ug Hx Immunizations Up To Date Tetanus Booster (TDap): Unknown (CARI HANLEY APRN) Seasonal Allergies Seasonal Allergies: No (CARI HANLEY APRN) Past Medical History Surgeries: Yes (05/2013) Section Respiratory: No Cardiac: No Neurological: No Reproductive Disorders: No Sexually Transmitted Disease: No HIV/AIDS: No Gastrointestinal: Yes Chronic Constipation Musculoskeletal: No Endocrine: No Cancer: No Psychosocial: No Integumentary: No Blood Disorders: No (CARI HANLEY APRN) Physical Exam Vital Signs Vital Signs - First Documented 03/20/21 14:32 Temp 36.4 Pulse 101 Resp 20 B/P (MAP) 185/101 (129) Pulse Ox 98 O2 Delivery Room Air (TONY BUTLER MD) Vital Signs Capillary Refill : Less Than 3 Seconds (CARI HANLEY APRN) Height, Weight, BMI Height: 5'4.00" Weight: 380lbs. oz. 172.845756mx; 67.00 BMI Method:Stated General Appearance: No Apparent Distress, WD/WN, Anxious, Obese HEENT: PERRL/EOMI, TMs Normal Neck: Full Range of Motion, Normal Inspection Respiratory: No Accessory Muscle Use, No Respiratory Distress Cardiovascular: Regular Rate, Rhythm, Normal Peripheral Pulses Gastrointestinal: Normal Bowel Sounds, Non Tender, Soft Extremity: Normal Capillary Refill, Normal Inspection Neurologic/Psychiatric: Alert, Oriented x3 Skin: Normal Color, Warm/Dry (CARI HANLEY APRN) Progress/Results/Core Measures Results/Orders Lab Results Laboratory Tests Test 03/20/21 14:44 Range/Units White Blood Count 10.9 4.3-11.0 10^3/uL Red Blood Count 4.93 3.80-5.11 10^6/uL Hemoglobin 14.3 11.5-16.0 g/dL Hematocrit 43 35-52 % Mean Corpuscular Volume 86 80-99 fL Mean Corpuscular Hemoglobin 29 25-34 pg Mean Corpuscular Hemoglobin Concent 34 32-36 g/dL Red Cell Distribution Width 13.1 10.0-14.5 % Platelet Count 337 130-400 10^3/uL Mean Platelet Volume 10.2 9.0-12.2 fL Immature Granulocyte % (Auto) 0 % Neutrophils (%) (Auto) 68 42-75 % Lymphocytes (%) (Auto) 25 12-44 % Monocytes (%) (Auto) 5 0-12 % Eosinophils (%) (Auto) 2 0-10 % Basophils (%) (Auto) 0 0-10 % Neutrophils # (Auto) 7.4 1.8-7.8 10^3/uL Lymphocytes # (Auto) 2.7 1.0-4.0 10^3/uL Monocytes # (Auto) 0.5 0.0-1.0 10^3/uL Eosinophils # (Auto) 0.2 0.0-0.3 10^3/uL Basophils # (Auto) 0.0 0.0-0.1 10^3/uL Immature Granulocyte # (Auto) 0.0 0.0-0.1 10^3/uL Prothrombin Time 12.7 12.2-14.7 SEC INR Comment 0.9 0.8-1.4 Activated Partial Thromboplast Time 24 24-35 SEC Sodium Level 139 135-145 MMOL/L Potassium Level 3.9 3.6-5.0 MMOL/L Chloride Level 103 98-107 MMOL/L Carbon Dioxide Level 21 21-32 MMOL/L Anion Gap 15 H 5-14 MMOL/L Blood Urea Nitrogen 13 7-18 MG/DL Creatinine 0.87 0.60-1.30 MG/DL Estimat Glomerular Filtration Rate > 60 BUN/Creatinine Ratio 15 Glucose Level 177 H 70-105 MG/DL Calcium Level 9.5 8.5-10.1 MG/DL Corrected Calcium 9.4 8.5-10.1 MG/DL Magnesium Level 1.7 1.6-2.4 MG/DL Total Bilirubin 0.5 0.1-1.0 MG/DL Aspartate Amino Transf (AST/SGOT) 26 5-34 U/L Alanine Aminotransferase (ALT/SGPT) 39 0-55 U/L Alkaline Phosphatase 77 40-136 U/L Myoglobin 36.7 10.0-92.0 NG/ML Troponin I < 0.028 <0.028 NG/ML Total Protein 7.6 6.4-8.2 GM/DL Albumin 4.1 3.2-4.5 GM/DL Thyroid Stimulating Hormone (TSH) 0.52 0.35-4.94 UIU/ML Free Thyroxine 1.01 0.70-1.48 NG/DL Serum Test, Qualitative NEGATIVE NEGATIVE (TONY BUTLER MD) My Orders Orders - TONY BUTLER MD Cbc With Automated Diff (03/20/21 14:30) Chest 1 View, Ap/Pa Only (03/20/21 14:30) Ekg Tracing (03/20/21 14:30) Protime With Inr (03/20/21 14:30) Partial Thromboplastin Time (03/20/21 14:30) O2 (03/20/21 14:30) Monitor-Rhythm Ecg Trace Only (03/20/21 14:30) Ed Iv/Invasive Line Start (03/20/21 14:30) Troponin I (03/20/21 14:30) Hcg,Qualitative Serum (03/20/21 14:30) Comprehensive Metabolic Panel (03/20/21 14:44) Magnesium (03/20/21 14:44) Myoglobin Serum (03/20/21 14:44) (TONY BUTLER MD) Vital Signs/I&O 03/20/21 03/20/21 03/20/21 14:32 14:32 16:51 Temp 36.4 36.4 Pulse 101 58 Resp 20 20 B/P (MAP) 185/101 (129) 127/60 (129) Pulse Ox 98 98 O2 Delivery Room Air Room Air Room Air (TONY BUTLER MD) Blood Pressure Mean: 129 Initial ECG Impression Date: Mar 20, 2021 Initial ECG Impression Time: 14:37 Initial ECG Rate: 66 Initial ECG Rhythm: Normal Sinus Initial ECG Intervals: Normal Initial ECG Impression: Normal (CARI HANLEY APRN) Departure Communication (Admissions) 1552-much more relaxed blood pressure down to 118/82. She states that she still has some intense pain to the medial aspect of the left shoulder blade. NAME: [facility]STRO [facility] REC#: [id number] PT STATUS: REG ER : 1990 PHYSICIAN: TONY BUTLER MD ADMIT DATE: 03/20/21/ER Draft Date of Exam:03/20/21 CHEST 1 VIEW, AP/PA ONLY Indication: Chest pain. Comparison: 11/05/2018. Discussion: Single portable upright view of the chest was obtained. Exam is somewhat limited due to body habitus. Normal heart size. No focal consolidation, pleural fluid or pneumothorax. No osseous abnormality. Impression: Negative portable chest. Dictated on workstation # [id number] Dict: 03/20/21 1515 Trans: 03/20/21 1518 [facility] [id number] Interpreted by: CAIO ABEBE MD Electronically signed by: (CARI HANLEY APRN) Impression Primary Impression: Chest pain Additional Impression: Anxiety Disposition: 01 HOME, SELF-CARE Condition: Improved Departure-Patient Inst. Decision time for Depature: 15:45 (CARI HANLEY APRN) Referrals: [facility] (PCP/Family) Primary Care Physician Patient Instructions: Anxiety, Adult ED, Chest Pain (DC) Add. Discharge Instructions: 1. Return to ER for any concerns. Take medication as directed. If he have this ongoing shoulder blade/arm pain you may need an MRI of your neck to evaluate for cervical disc bulge. All discharge instructions reviewed with patient and/or family. Voiced understanding. Scripts Alprazolam (Xanax) 0.5 Mg Tablet 0.5 MG PO DAILY PRN for ANXIETY, #10 TAB Prov: CARI HANLEY APRN 03/20/21 Ibuprofen (Ibuprofen) 800 Mg Tablet 800 MG PO Q8H PRN for PAIN, #30 TAB 0 Refills Prov: CARI HANLEY APRN 03/20/21 Methocarbamol (Methocarbamol) 750 Mg Tablet 750 MG PO Q6-8HR PRN for PAIN-MODERATE (5-7), #14 TAB Prov: CARI HANLEY APRN 03/20/21 ATTENDING PHYSICIAN NOTE: I was physically present as attending physician in the emergency department during the care of this patient, but I was not directly involved in the decision making or delivery of care for this patient. (TONY BUTLER MD) CARI HANLEY APRN Mar 20, 2021 14:50 TONY BUTLER MD Mar 21, 2021 18:44
[2021-03-20 15:05] LABS: BASOPHILS % (AUTO) 0 % (0-10); EOSINOPHILS # (AUTO) 0.2 10^3/uL (0.0-0.3); EOSINOPHILS % (AUTO) 2 % (0-10); HEMATOCRIT 43 % (35-52); HEMOGLOBIN 14.3 g/dL (11.5-16.0); LYMPHOCYTES # (AUTO) 2.7 10^3/uL (1.0-4.0); LYMPHOCYTES % (AUTO) 25 % (12-44); MEAN CORPUSCULAR HEMOGLOBIN 29 pg (25-34); MEAN CORPUSCULAR HGB CONC 34 g/dL (32-36); MEAN CORPUSCULAR VOLUME 86 fL (80-99); MEAN PLATELET VOLUME 10.2 fL (9.0-12.2); MONOCYTES # (AUTO) 0.5 10^3/uL (0.0-1.0); MONOCYTES % (AUTO) 5 % (0-12); NEUTROPHILS # (AUTO) 7.4 10^3/uL (1.8-7.8); NEUTROPHILS % (AUTO) 68 % (42-75); PLATELET COUNT 337 10^3/uL (130-400); WHITE BLOOD COUNT 10.9 10^3/uL (4.3-11.0)
[2021-03-20 15:14] LABS: INR 0.9 (0.8-1.4); PROTHROMBIN TIME PATIENT 12.7 SEC (12.2-14.7)
--- NOTE | 2021-03-20 15:19 | Diagnostic Imaging Report ---
Indication: Chest pain. Comparison: 11/05/2018. Discussion: Single portable upright view of the chest was obtained. Exam is somewhat limited due to body habitus. Normal heart size. No focal consolidation, pleural fluid or pneumothorax. No osseous abnormality. Impression: Negative portable chest. Dictated by: Dictated on workstation # [id number]
[2021-03-20 15:20] LABS: ALBUMIN 4.1 GM/DL (3.2-4.5); CHLORIDE 103 MMOL/L (98-107); POTASSIUM 3.9 MMOL/L (3.6-5.0); SODIUM 139 MMOL/L (135-145)
[2021-03-20 15:22] LABS: CALCIUM 9.5 MG/DL (8.5-10.1)
[2021-03-20 15:23] LABS: GLUCOSE 177 MG/DL (70-105); TOTAL PROTEIN 7.6 GM/DL (6.4-8.2)
[2021-03-20 15:24] LABS: CARBON DIOXIDE 21 MMOL/L (21-32)
[2021-03-20 15:25] LABS: BILIRUBIN,TOTAL 0.5 MG/DL (0.1-1.0)
[2021-03-20 15:26] LABS: ALKALINE PHOSPHATASE 77 U/L (40-136); CREATININE SERUM 0.87 MG/DL (0.60-1.30); GFR ESTIMATED > 60
[2021-03-20 15:27] LABS: BUN/CREATININE RATIO 15
[2021-03-20 15:29] LABS: ALANINE AMINOTRANSFERASE 39 U/L (0-55); MAGNESIUM 1.7 MG/DL (1.6-2.4)
[2021-03-20 15:42] LABS: FREE T4 (FREE THYROXINE) 1.01 NG/DL (0.70-1.48)
[2021-03-20] MEDS ORDERED: METH-732 PO (15:54)
[2021-03-20] MEDS ORDERED: ALPR0.5T PO (15:54)
[2021-03-20] MEDS ORDERED: IBUP-1780 PO (15:54)
[2021-03-20] MEDS ORDERED: ORPHENADRINE 60 MG/2 ML (NORFLEX) AMP (ED ONLY) IV ONE (16:00)
[2021-03-20] MEDS ORDERED: KETOROLAC 30 MG/ML VIAL IVP ONE (16:00)
[2021-03-20 16:51] VITALS: BP 127/60
== END 2021-03-20 16:50 | disposition home or self-care (01) ==
LOC: EDUNIT# 14:27 → ER 14:28
DX: R07.9 Chest pain, unspecified (principal); F41.9 Anxiety disorder, unspecified; E66.9 Obesity, unspecified; Z68.44 Body mass index [BMI] 60.0-69.9, adult; Z87.891 Personal history of nicotine dependence
CPT/HCPCS: 36415; 71045; 80053; 83735; 83874; 84439; 84443; 84484; 84703; 85025; 85610; 85730; 93005; 93041

== ENCOUNTER 2021-08-26 10:15 | Emergency (ER) | payer OTHER ==
[~2021-08-26] VITALS: Ht 162 cm; Wt 180.0 kg
[~2021-08-26 10:15] MED LIST changes: +ALPR0.5T PO; +METH-732 PO; -SULF1TAB35 PO; +SULF1TAB38 PO
--- NOTE | 2021-08-26 11:24 | ED General ---
General Chief Complaint: Cardiac/General Problems Stated Complaint: HIGH BP;L SIDE WEAKNESS Nursing Triage Note: PT STATES NOT FEELING GOOD FOR A FEW DAYS, HEADACHE FOR A COUPLE DAYS. NEG COVID TEST 2 TIMES THIS WEEK, WORKS AT [employer]. HAS NOT STARTED TAKING HER MED FOR HYPERTENSION, WAS SUPPOSED TO START TAKING IT MONDAY. RT LEG AND CHEEK NUMBNESS AND LT ARM DRIFT. 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 She had a migraine headache for about 2 days. She has a history of migraines as a child but never had any neurologic deficits with this. She denies fevers or chills but overall feels poorly. She states that she is not been sleeping well at night. She has not yet had a sleep study. She was started on blood pressure medication on Monday but has not yet started taking that. Her blood pressure typically runs 140s over 70s. Today she was about 180/110. Timing/Duration: 1-2 Days Severity: Moderate Associated Systoms: Headaches; No Nausea/Vomiting Allergies and Home Medications Allergies Coded Allergies: No Known Drug Allergies (Unverified , 08/23/10) Patient Home Medication List Home Medication List Reviewed: Yes Alprazolam (Xanax) 0.5 Mg Tablet, 0.5 MG PO DAILY PRN for ANXIETY Prescribed by: CARI HANLEY on 03/20/21 1555 Amlodipine Besylate (Amlodipine Besylate) 5 Mg Tablet, 5 MG PO DAILY Prescribed by: IZA PEREZ on 06/05/13 0911 Cefuroxime Axetil (Cefuroxime) 250 Mg Tablet, 250 MG PO BID Prescribed by: CARI HANLEY on 08/26/21 1224 Ciprofloxacin (Cipro) 500 Mg Tablet, 1 TAB PO BID Prescribed by: NAYELY QUINTERO on 06/15/13 0936 Docusate Sodium (Colace Capsule) 100 Mg Cap, 100 MG PO BID Prescribed by: ALTAF SLADE on 05/25/13 1045 Ferrous Sulfate (Ferrous Sulfate) 325 Mg Tablet, 325 MG PO DAILY Prescribed by: ALTAF SLADE on 05/25/13 1045 Ibuprofen (Motrin) 600 Mg Tab, 600 MG PO Q6H PRN Prescribed by: ALTAF SLADE on 05/25/13 1045 Ibuprofen (Ibuprofen) 800 Mg Tablet, 800 MG PO Q8H PRN for PAIN Prescribed by: JENNA GROSSMAN on 04/05/17 2135 Ibuprofen (Ibuprofen) 800 Mg Tablet, 800 MG PO Q8H PRN for PAIN-MILD Prescribed by: PALMER FOSTER on 04/03/19 0901 Ibuprofen (Ibuprofen) 800 Mg Tablet, 800 MG PO Q8H PRN for PAIN Prescribed by: CARI HANLEY on 03/20/21 1554 Methocarbamol (Methocarbamol) 750 Mg Tablet, 750 MG PO Q6-8HR PRN for PAIN- MODERATE (5-7) Prescribed by: CARI HANLEY on 03/20/21 1554 Metronidazole (Flagyl 500 Mg) 500 Mg Tab, 1 EACH PO BID Prescribed by: NAYELY QUINTERO on 06/15/13 0936 Sulfamethoxazole/Trimethoprim (Bactrim Ds Tablet) 1 Each Tablet, 1 EACH PO BID Prescribed by: PALMER FOSTER on 04/03/19 0851 Review of Systems Review of Systems Constitutional: see HPI EENTM: see HPI Respiratory: no symptoms reported Cardiovascular: no symptoms reported Genitourinary: no symptoms reported Musculoskeletal: no symptoms reported Skin: no symptoms reported Psychiatric/Neurological: See HPI, Anxiety, Headache, Numbness Past Iebnifo-Scmzbn-Hwrbvf Hx Patient Social History Tobacco Use?: No Substance use?: No Alcohol Use?: Yes Alcohol type: Wine Alcohol Frequency: Rarely Immunizations Up To Date Tetanus Booster (TDap): Unknown Influenza Vaccine Up-to-Date: No; Not Current Seasonal Allergies Seasonal Allergies: No Past Medical History Surgeries: Yes (05/2013) Section Respiratory: No Cardiac: No Neurological: No Last Menstrual Period: Jul 19, 2021 Reproductive Disorders: No Sexually Transmitted Disease: No HIV/AIDS: No Gastrointestinal: Yes Chronic Constipation Musculoskeletal: No Endocrine: No Cancer: No Psychosocial: No Integumentary: No Blood Disorders: No Physical Exam Vital Signs Vital Signs - First Documented 08/26/21 10:49 Temp 36.7 Pulse 71 Resp 20 B/P (MAP) 186/102 (130) Pulse Ox 98 O2 Delivery Room Air Capillary Refill : Less Than 3 Seconds Height, Weight, BMI Height: 5'4.00" Weight: 380lbs. oz. [id number]; 68.00 BMI Method:Stated General Appearance: No Apparent Distress, WD/WN, Obese, Other (Alert and oriented very pleasant heart rate in the 80s blood pressure 180/110. She has an NIH of 1 on my exam. There is no left arm drift or facial asymmetry. She does report less sensation on the left side as compared to the right.) Eyes: Bilateral Eye Normal Inspection, Bilateral Eye PERRL HEENT: PERRL/EOMI, TMs Normal Neck: Full Range of Motion, Normal Inspection Respiratory: No Accessory Muscle Use, No Respiratory Distress Cardiovascular: Regular Rate, Rhythm, Normal Peripheral Pulses Gastrointestinal: Normal Bowel Sounds, Non Tender, Soft Extremity: Normal Capillary Refill, Normal Inspection Neurologic/Psychiatric: Alert, Oriented x3 Skin: Normal Color, Warm/Dry Progress/Results/Core Measures Suspected Sepsis SIRS Temperature: Pulse: 71 Respiratory Rate: 20 Laboratory Tests 08/26/21 11:20: White Blood Count 11.4H Blood Pressure 186 /102 Mean: 130 Laboratory Tests 08/26/21 11:20: Creatinine 0.82, Platelet Count 343, Total Bilirubin 0.4 Results/Orders Lab Results Laboratory Tests Test 08/26/21 11:20 08/26/21 11:25 Range/Units White Blood Count 11.4 H 4.3-11.0 10^3/uL Red Blood Count 4.77 3.80-5.11 10^6/uL Hemoglobin 13.6 11.5-16.0 g/dL Hematocrit 40 35-52 % Mean Corpuscular Volume 85 80-99 fL Mean Corpuscular Hemoglobin 29 25-34 pg Mean Corpuscular Hemoglobin Concent 34 32-36 g/dL Red Cell Distribution Width 13.0 10.0-14.5 % Platelet Count 343 130-400 10^3/uL Mean Platelet Volume 9.9 9.0-12.2 fL Immature Granulocyte % (Auto) 0 % Neutrophils (%) (Auto) 71 42-75 % Lymphocytes (%) (Auto) 22 12-44 % Monocytes (%) (Auto) 5 0-12 % Eosinophils (%) (Auto) 2 0-10 % Basophils (%) (Auto) 1 0-10 % Neutrophils # (Auto) 8.1 H 1.8-7.8 X 10^3 Lymphocytes # (Auto) 2.5 1.0-4.0 X 10^3 Monocytes # (Auto) 0.5 0.0-1.0 X 10^3 Eosinophils # (Auto) 0.2 0.0-0.3 10^3/uL Basophils # (Auto) 0.1 0.0-0.1 10^3/uL Immature Granulocyte # (Auto) 0.0 0.0-0.1 10^3/uL D-Dimer <= 0.27 0.00-0.49 UG/ML Sodium Level 136 135-145 MMOL/L Potassium Level 4.3 3.6-5.0 MMOL/L Chloride Level 99 98-107 MMOL/L Carbon Dioxide Level 24 21-32 MMOL/L Anion Gap 13 5-14 MMOL/L Blood Urea Nitrogen 11 7-18 MG/DL Creatinine 0.82 0.60-1.30 MG/DL Estimat Glomerular Filtration Rate 99 BUN/Creatinine Ratio 13 Glucose Level 164 H 70-105 MG/DL Calcium Level 10.1 8.5-10.1 MG/DL Corrected Calcium 10.1 8.5-10.1 MG/DL Total Bilirubin 0.4 0.1-1.0 MG/DL Aspartate Amino Transf (AST/SGOT) 28 5-34 U/L Alanine Aminotransferase (ALT/SGPT) 29 0-55 U/L Alkaline Phosphatase 67 40-136 U/L Troponin I < 0.028 <0.028 NG/ML Total Protein 7.6 6.4-8.2 GM/DL Albumin 4.0 3.2-4.5 GM/DL Serum Test, Qualitative NEGATIVE NEGATIVE Urine Color YELLOW Urine Clarity CLEAR Urine pH 6.0 5-9 Urine Specific [place] >=1.030 1.016-1.022 Urine Protein 2+ H NEGATIVE Urine Glucose (UA) NEGATIVE NEGATIVE Urine Ketones NEGATIVE NEGATIVE Urine Nitrite NEGATIVE NEGATIVE Urine Bilirubin NEGATIVE NEGATIVE Urine Urobilinogen 0.2 < = 1.0 MG/DL Urine Leukocyte Esterase TRACE H NEGATIVE Urine RBC (Auto) 2+ H NEGATIVE Urine RBC 2-5 H /HPF Urine WBC 5-10 H /HPF Urine Squamous Epithelial Cells 5-10 /HPF Urine Crystals PRESENT H /LPF Urine Amorphous Sediment FEW TIA URATES H /LPF Urine Bacteria FEW H /HPF Urine Casts NONE /LPF Urine Mucus NEGATIVE /LPF Urine Culture Indicated YES My Orders Orders - HANLEY,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 [employer] Ct Head Wo (08/26/21 11:08) Cbc With Automated Diff (08/26/21 11:08) Comprehensive Metabolic Panel (08/26/21 11:08) Ekg Tracing (08/26/21 11:08) Troponin I Lorraine (08/26/21 11:08) Fibrin Degradation Products (08/26/21 11:08) Ed Iv/Invasive Line Start (08/26/21 11:08) Hcg,Qualitative Serum (08/26/21 11:08) Ketorolac Injection (Toradol Injection) (08/26/21 11:30) Prochlorperazine Injection (Compazine In (08/26/21 11:30) Diphenhydramine Injection (Benadryl Inje (08/26/21 11:30) Clonidine Tablet (Catapres Tablet) (08/26/21 11:30) Lactated Ringers (Lr 1000 Ml Iv Solution (08/26/21 11:30) Ua Culture If Indicated (08/26/21 11:29) Urine Culture (08/26/21 11:25) Medications Given in ED Current Medications Medications Dose Ordered Sig/Gianni Route Start Time Stop Time Status Last Admin Dose Admin Clonidine HCl 0.1 mg ONCE ONCE PO 08/26/21 11:30 08/26/21 11:31 DC 08/26/21 11:40 0.1 MG Diphenhydramine HCl 25 mg ONCE ONCE IVP 08/26/21 11:30 08/26/21 11:31 DC 08/26/21 11:41 25 MG Ketorolac Tromethamine 30 mg ONCE ONCE IVP 08/26/21 11:30 08/26/21 11:31 DC 08/26/21 11:41 30 MG Prochlorperazine Edisylate 5 mg ONCE ONCE IV 08/26/21 11:30 08/26/21 11:31 DC 08/26/21 11:41 5 MG Vital Signs/I&O 08/26/21 08/26/21 10:49 11:41 Temp 36.7 36.7 Pulse 71 Resp 20 B/P (MAP) 186/102 (130) Pulse Ox 98 O2 Delivery Room Air Capillary Refill : Less Than 3 Seconds Blood Pressure Mean: 130 Departure Communication (Admissions) Family Conversation 1235-headache is down to 5 out of 10 she reports that she feels "much better". Work-up is unremarkable. Blood pressure down to 142/80. States that she formally took Maxalt for her migraines which did work well for her so I will give her an Imitrex here since we do not have Maxalt and a prescription for Maxalt at home. EKG shows sinus rhythm at 57 normal intervals no ectopy no ST segment change normal intervals Impression Primary Impression: Migraine variants, not intractable Additional Impression: Hypertension Disposition: HOME, SELF-CARE Condition: Stable Departure-Patient Inst. Decision time for Depature: 12:09 Referrals: [facility] (PCP/Family) Primary Care Physician Patient Instructions: Migraines (DC) Add. Discharge Instructions: 1. Antibiotic as directed. Return to ER for any worsening. Start your blood pressure medication. All discharge instructions reviewed with patient and/or family. Voiced understanding. Scripts Rizatriptan Benzoate (Maxalt) 10 Mg Tablet 10 MG PO DAILY PRN for HEADACHE, #14 TAB Prov: CARI HANLEY APRN 08/26/21 Cefuroxime Axetil (Cefuroxime) 250 Mg Tablet 250 MG PO BID, #10 TAB Prov: CARI HANLEY APRN 08/26/21 NIH Stroke Scale NIH Stroke Scale NIH : Select: Initial Level of Consciousness: 0=Alert Level of Consciousness-Questio: 0=Answers both month/age LOC Commands: 0=Performs both tasks Gaze: 0=Normal Visual Ryan: 0=No visual loss Facial Movement (Facial Paresi: 0=Normal symmetrical mnt Motor Function-Arms Right: 0=No drift Motor Function-Arms Left: 0=No drift Motor Function-Legs Right: 0=No drift Motor Function-Legs Left: 0=No drift Limb Ataxia: 0=Absent Sensory: 1=Mild to Moderate loss Best Language: 0=No aphasia Dysarthria: 0=Normal Extinction & Inattention: 0=No abnormality NIH Stroke Scale Score: 1 CARI HANLEY APRN Aug 26, 2021 11:24
[2021-08-26] MEDS ORDERED: KETOROLAC 30 MG/ML VIAL IVP ONE (11:30)
[2021-08-26] MEDS ORDERED: PROCHLORPERAZINE 10 MG/2ML INJ (COMPAZINE) IV ONE (11:30)
[2021-08-26] MEDS ORDERED: LACTATED RINGERS 1,000 ML IV SCH (11:30)
[2021-08-26] MEDS ORDERED: cloNIDine 0.1 MG (CATAPRES) TAB PO ONE (11:30)
[2021-08-26] MEDS ORDERED: diphenhydrAMINE 50 MG/ML INJ (BENADRYL) IVP ONE (11:30)
[2021-08-26 11:33] LABS: BASOPHILS # (AUTO) 0.1 10^3/uL (0.0-0.1); BASOPHILS % (AUTO) 1 % (0-10); EOSINOPHILS # (AUTO) 0.2 10^3/uL (0.0-0.3); EOSINOPHILS % (AUTO) 2 % (0-10); HEMATOCRIT 40 % (35-52); HEMOGLOBIN 13.6 g/dL (11.5-16.0); LYMPHOCYTES # (AUTO) 2.5 X 10^3 (1.0-4.0); LYMPHOCYTES % (AUTO) 22 % (12-44); MEAN CORPUSCULAR HEMOGLOBIN 29 pg (25-34); MEAN CORPUSCULAR HGB CONC 34 g/dL (32-36); MEAN CORPUSCULAR VOLUME 85 fL (80-99); MEAN PLATELET VOLUME 9.9 fL (9.0-12.2); MONOCYTES # (AUTO) 0.5 X 10^3 (0.0-1.0); MONOCYTES % (AUTO) 5 % (0-12); NEUTROPHILS # (AUTO) 8.1 X 10^3 (1.8-7.8); NEUTROPHILS % (AUTO) 71 % (42-75); PLATELET COUNT 343 10^3/uL (130-400); WHITE BLOOD COUNT 11.4 10^3/uL (4.3-11.0)
[2021-08-26 11:44] LABS: CHLORIDE 99 MMOL/L (98-107); POTASSIUM 4.3 MMOL/L (3.6-5.0); SODIUM 136 MMOL/L (135-145)
[2021-08-26 11:46] LABS: CALCIUM 10.1 MG/DL (8.5-10.1)
[2021-08-26 11:47] LABS: GLUCOSE 164 MG/DL (70-105); TOTAL PROTEIN 7.6 GM/DL (6.4-8.2)
[2021-08-26 11:48] LABS: CARBON DIOXIDE 24 MMOL/L (21-32)
[2021-08-26 11:49] LABS: BILIRUBIN,TOTAL 0.4 MG/DL (0.1-1.0)
[2021-08-26 11:50] LABS: ALKALINE PHOSPHATASE 67 U/L (40-136); CREATININE SERUM 0.82 MG/DL (0.60-1.30); GFR ESTIMATED 99
[2021-08-26 11:51] LABS: BUN/CREATININE RATIO 13
[2021-08-26 11:53] LABS: ALANINE AMINOTRANSFERASE 29 U/L (0-55)
[2021-08-26 11:59] LABS: BILIRUBIN,URINE NEGATIVE (NEGATIVE); CLARITY,URINE CLEAR; COLOR,URINE YELLOW; GLUCOSE, URINE (UA) NEGATIVE (NEGATIVE); KETONES,URINE NEGATIVE (NEGATIVE); LEUKOCYTE ESTERASE ,URINE TRACE (NEGATIVE); NITRITE,URINE NEGATIVE (NEGATIVE); PROTEIN,URINE 2+ (NEGATIVE)
[2021-08-26 12:10] LABS: AMORPHOUS SEDIMENT,UR FEW AMOR URATES /LPF; BACTERIA,URINE FEW /HPF
[2021-08-26] MEDS ORDERED: CEFU250T80 PO (12:24)
--- NOTE | 2021-08-26 12:47 | Diagnostic Imaging Report ---
PROCEDURE: CT head without contrast. TECHNIQUE: Multiple contiguous axial images were obtained through the brain without the use of intravenous contrast. Auto Exposure Controls were utilized during the CT exam to meet ALARA standards for radiation dose reduction. INDICATION: Migraine headache and left arm drift. COMPARISON: Comparison is made with prior CT head from 09/16/2008. FINDINGS: Ventricles and sulci are within normal limits. No sulcal effacement or midline shift is identified. No acute intra-axial or extra-axial hemorrhage is detected. Cisterns are patent. The visualized paranasal sinuses are clear. IMPRESSION: No acute intracranial process is detected. Dictated by: Dictated on workstation # [id number]
[2021-08-26] MEDS ORDERED: RIZA10TA23 PO (12:58)
[2021-08-26] MEDS ORDERED: SUMAtriptan 50 MG (IMITREX) TAB PO ONE (13:00)
[2021-08-26 13:09] VITALS: BP 104/77
== END 2021-08-26 13:09 | disposition home or self-care (01) ==
LOC: EDUNIT# 10:15 → ER 10:17
DX: G43.909 Migraine, unspecified, not intractable, without status migrainosus (principal); I10 Essential (primary) hypertension; E66.9 Obesity, unspecified; Z68.44 Body mass index [BMI] 60.0-69.9, adult
CPT/HCPCS: 36415; 70450; 80053; 81000; 84484; 84703; 85025; 85379; 87088; 93005

== ENCOUNTER 2022-10-07 15:13 | Emergency (ER) | payer OTHER ==
[~2022-10-07] VITALS: Ht 162.6 cm; Wt 181.0 kg
[~2022-10-07 15:13] MED LIST changes: +CEFU250T80 PO; +RIZA-1 PO
--- NOTE | 2022-10-07 15:40 | ED Chest Pain ---
General Chief Complaint: Chest Pain Stated Complaint: CHEST PAIN Source: patient Exam Limitations: no limitations History of Present Illness Date Seen by Provider: Oct 07, 2022 Time Seen by Provider: 15:38 Initial Comments to ER by private vehicle from home. She provides her own history. She has had chest pain intermittently for the past week, constant since last night. This is the central chest and left lateral breast. The left breast is tender when bathi ng and tender to touch. No fever chills or nodules. She did schedule a mammogram today but has not yet had that done. No fevers chills cough or shortness of breath. History of hypertension and diabetes as well as morbid obesity. She is worried because of her obesity that this may be cardiac related. Timing/Duration: changing over time Severity/Quality: moderate Location: central Radiation: no radiation Activities at Onset: none ASA po PERIPHERAL VASCULAR TECH: No NTG SL PERIPHERAL VASCULAR TECH: No Associated Symptoms: denies symptoms Allergies and Home Medications Allergies Coded Allergies: No Known Drug Allergies (Unverified , 08/23/10) Patient Home Medication List Home Medication List Reviewed: Yes Alprazolam (Xanax) 0.5 Mg Tablet, 0.5 MG PO DAILY PRN for ANXIETY Prescribed by: CARI HANLEY on 03/20/21 1555 Amlodipine Besylate (Amlodipine Besylate) 5 Mg Tablet, 5 MG PO DAILY Prescribed by: IZA PEREZ on 06/05/13 0911 Cefuroxime Axetil (Cefuroxime) 250 Mg Tablet, 250 MG PO BID Prescribed by: CARI HANLEY on 08/26/21 1224 Ciprofloxacin (Cipro) 500 Mg Tablet, 1 TAB PO BID Prescribed by: NAYELY QUINTERO on 06/15/13 0936 Docusate Sodium (Colace Capsule) 100 Mg Cap, 100 MG PO BID Prescribed by: ALTAF SLADE on 05/25/13 1045 Ferrous Sulfate (Ferrous Sulfate) 325 Mg Tablet, 325 MG PO DAILY Prescribed by: ALTAF SLADE on 05/25/13 1045 Ibuprofen (Motrin) 600 Mg Tab, 600 MG PO Q6H PRN Prescribed by: ALTAF SLADE on 05/25/13 1045 Ibuprofen (Ibuprofen) 800 Mg Tablet, 800 MG PO Q8H PRN for PAIN Prescribed by: JENNA GROSSMAN on 04/05/17 2135 Ibuprofen (Ibuprofen) 800 Mg Tablet, 800 MG PO Q8H PRN for PAIN-MILD Prescribed by: PALMER FOSTER on 04/03/19 0901 Ibuprofen (Ibuprofen) 800 Mg Tablet, 800 MG PO Q8H PRN for PAIN Prescribed by: CARI HANLEY on 03/20/21 1554 Methocarbamol (Methocarbamol) 750 Mg Tablet, 750 MG PO Q6-8HR PRN for PAIN- MODERATE (5-7) Prescribed by: CARI HANLEY on 03/20/21 1554 Metronidazole (Flagyl 500 Mg) 500 Mg Tab, 1 EACH PO BID Prescribed by: NAYELY QUINTERO on 06/15/13 0936 Rizatriptan Benzoate (Maxalt) 10 Mg Tablet, 10 MG PO DAILY PRN for HEADACHE Prescribed by: CARI HANLEY on 08/26/21 1258 Sulfamethoxazole/Trimethoprim (Bactrim Ds Tablet) 1 Each Tablet, 1 EACH PO BID Prescribed by: PALMER FOSTER on 04/03/19 0851 Review of Systems Review of Systems Constitutional: see HPI EENTM: No Symptoms Reported Past Luqgych-Ltophm-Gvgdrm Hx Immunizations Up To Date Tetanus Booster (TDap): Unknown Seasonal Allergies Seasonal Allergies: No Past Medical History Surgeries: Yes (05/2013) Section Respiratory: No Cardiac: No Neurological: No Reproductive Disorders: No Sexually Transmitted Disease: No HIV/AIDS: No Gastrointestinal: Yes Chronic Constipation Musculoskeletal: No Endocrine: No Cancer: No Psychosocial: No Integumentary: No Blood Disorders: No Physical Exam Vital Signs Capillary Refill : Height, Weight, BMI Height: 5'4.00" Weight: 380lbs. oz. 172.961777pg; 68.00 BMI Method:Stated General Appearance: No Apparent Distress, WD/WN, Obese, Other (Alert and oriented very pleasant. EKG shows sinus rhythm at [address] segment changes normal intervals.) HEENT: PERRL/EOMI, Normal ENT Inspection Neck: Full Range of Motion, Normal Inspection Respiratory: No Accessory Muscle Use, No Respiratory Distress Cardiovascular: Regular Rate, Rhythm, Normal Peripheral Pulses Gastrointestinal: Normal Bowel Sounds, Non Tender, Soft Neurologic/Psychiatric: Alert, Oriented x3 Skin: Normal Color, Warm/Dry Progress/Results/Core Measures Results/Orders Lab Results Laboratory Tests Test 10/07/22 15:35 Range/Units White Blood Count 14.4 H 4.3-11.0 10^3/uL Red Blood Count 4.49 3.80-5.11 10^6/uL Hemoglobin 12.8 11.5-16.0 g/dL Hematocrit 38 35-52 % Mean Corpuscular Volume 84 80-99 fL Mean Corpuscular Hemoglobin 29 25-34 pg Mean Corpuscular Hemoglobin Concent 34 32-36 g/dL Red Cell Distribution Width 13.2 10.0-14.5 % Platelet Count 359 130-400 10^3/uL Mean Platelet Volume 10.0 9.0-12.2 fL Immature Granulocyte % (Auto) 1 % Neutrophils (%) (Auto) 71 42-75 % Lymphocytes (%) (Auto) 22 12-44 % Monocytes (%) (Auto) 4 0-12 % Eosinophils (%) (Auto) 2 0-10 % Basophils (%) (Auto) 0 0-10 % Neutrophils # (Auto) 10.2 H 1.8-7.8 10^3/uL Lymphocytes # (Auto) 3.1 1.0-4.0 10^3/uL Monocytes # (Auto) 0.6 0.0-1.0 10^3/uL Eosinophils # (Auto) 0.2 0.0-0.3 10^3/uL Basophils # (Auto) 0.1 0.0-0.1 10^3/uL Immature Granulocyte # (Auto) 0.2 H 0.0-0.1 10^3/uL Neutrophils % (Manual) 63 % Lymphocytes % (Manual) 31 % Monocytes % (Manual) 4 % Reactive Lymphocytes 2 % Blood Morphology Comment NORMAL Sodium Level 133 L 135-145 MMOL/L Potassium Level 4.5 3.6-5.0 MMOL/L Chloride Level 99 98-107 MMOL/L Carbon Dioxide Level 22 21-32 MMOL/L Anion Gap 12 5-14 MMOL/L Blood Urea Nitrogen 13 7-18 MG/DL Creatinine 0.87 0.60-1.30 MG/DL Estimat Glomerular Filtration Rate 91 BUN/Creatinine Ratio 15 Glucose Level 117 H 70-105 MG/DL Calcium Level 9.6 8.5-10.1 MG/DL Corrected Calcium 9.6 8.5-10.1 MG/DL Total Bilirubin 0.3 0.1-1.0 MG/DL Aspartate Amino Transf (AST/SGOT) 49 H 5-34 U/L Alanine Aminotransferase (ALT/SGPT) 41 0-55 U/L Alkaline Phosphatase 57 40-136 U/L Troponin I < 0.028 <0.028 NG/ML Total Protein 8.1 6.4-8.2 GM/DL Albumin 4.0 3.2-4.5 GM/DL My Orders Orders - CARI HANLEY APRN Ekg Tracing (10/07/22 15:33) Cbc With Automated Diff (10/07/22 15:33) Comprehensive Metabolic Panel (10/07/22 15:33) Troponin I Lorraine (10/07/22 15:33) Aspirin Chewable Tablet (Baby Aspirin Ch (10/07/22 15:45) Chest 1 View, Ap/Pa Only (10/07/22 15:40) Manual Differential (10/07/22 15:35) Alprazolam Tablet (Xanax Tablet) (10/07/22 16:00) Clonidine Tablet (Catapres Tablet) (10/07/22 16:00) Medications Given in ED Current Medications Medications Dose Ordered Sig/Gianni Route Start Time Stop Time Status Last Admin Dose Admin Aspirin 324 mg ONCE ONCE PO 10/07/22 15:45 10/07/22 15:46 DC 10/07/22 15:55 324 MG Departure Impression Primary Impression: Chest pain Disposition: HOME, SELF-CARE Condition: Stable Departure-Patient Inst. Decision time for Depature: 15:39 Referrals: [facility] (PCP/Family) Primary Care Physician Patient Instructions: Chest Pain Add. Discharge Instructions: 1. Return to ER for any concerns 2. Follow-up with your doctor next week 3. All discharge instructions reviewed with patient and/or family. Voiced understanding. CARI HANLEY APRN Oct 07, 2022 15:40
[2022-10-07] MEDS ORDERED: ASPIRIN 81 MG CHEW (CHILDREN'S ASA) PO ONE (15:45)
[2022-10-07 15:48] LABS: BASOPHILS # (AUTO) 0.1 10^3/uL (0.0-0.1); BASOPHILS % (AUTO) 0 % (0-10); EOSINOPHILS # (AUTO) 0.2 10^3/uL (0.0-0.3); EOSINOPHILS % (AUTO) 2 % (0-10); HEMATOCRIT 38 % (35-52); HEMOGLOBIN 12.8 g/dL (11.5-16.0); LYMPHOCYTES # (AUTO) 3.1 10^3/uL (1.0-4.0); LYMPHOCYTES % (AUTO) 22 % (12-44); MEAN CORPUSCULAR HEMOGLOBIN 29 pg (25-34); MEAN CORPUSCULAR HGB CONC 34 g/dL (32-36); MEAN CORPUSCULAR VOLUME 84 fL (80-99); MONOCYTES # (AUTO) 0.6 10^3/uL (0.0-1.0); MONOCYTES % (AUTO) 4 % (0-12); NEUTROPHILS # (AUTO) 10.2 10^3/uL (1.8-7.8); NEUTROPHILS % (AUTO) 71 % (42-75); PLATELET COUNT 359 10^3/uL (130-400); WHITE BLOOD COUNT 14.4 10^3/uL (4.3-11.0)
[2022-10-07] MEDS ORDERED: ALPRAZolam 0.5 MG (XANAX) TAB PO SCH (16:00)
[2022-10-07] MEDS ORDERED: cloNIDine 0.1 MG (CATAPRES) TAB PO ONE (16:00)
[2022-10-07 16:18] LABS: ALANINE AMINOTRANSFERASE 41 U/L (0-55); ALKALINE PHOSPHATASE 57 U/L (40-136); BILIRUBIN,TOTAL 0.3 MG/DL (0.1-1.0); BUN/CREATININE RATIO 15; CALCIUM 9.6 MG/DL (8.5-10.1); CARBON DIOXIDE 22 MMOL/L (21-32); CHLORIDE 99 MMOL/L (98-107); CREATININE SERUM 0.87 MG/DL (0.60-1.30); GFR ESTIMATED 91; GLUCOSE 117 MG/DL (70-105); POTASSIUM 4.5 MMOL/L (3.6-5.0); SODIUM 133 MMOL/L (135-145); TOTAL PROTEIN 8.1 GM/DL (6.4-8.2)
--- NOTE | 2022-10-07 16:22 | Diagnostic Imaging Report ---
EXAMINATION: Chest 1 view. HISTORY: Chest pain. COMPARISON: 03/20/2021. FINDINGS: Heart size and pulmonary vasculature are normal. The lungs are clear without consolidation, pleural effusion or pneumothorax. The osseous structures are intact. Exam is limited by patient body habitus. IMPRESSION: No acute radiographic abnormality in the chest. Dictated by: Dictated on workstation # [id number]
[2022-10-07 16:27] LABS: LYMPHOCYTES % (MANUAL) 31 %; MONOCYTES % (MANUAL) 4 %; NEUTROPHILS % (MANUAL) 63 %; RBC MORPH NORMAL; REACTIVE LYMPHOCYTES 2 %
[2022-10-07 16:42] VITALS: BP 156/81
== END 2022-10-07 16:42 | disposition home or self-care (01) ==
LOC: EDUNIT# 15:13 → ER 15:15
DX: R07.9 Chest pain, unspecified (principal); N64.4 Mastodynia; E66.01 Morbid (severe) obesity due to excess calories; Z68.44 Body mass index [BMI] 60.0-69.9, adult
CPT/HCPCS: 36415; 71045; 80053; 84484; 85007; 85027; 93005

== ENCOUNTER 2022-11-07 09:23 | Emergency (ER) | payer OTHER ==
[~2022-11-07] VITALS: Ht 162.5 cm; Wt 186.8 kg
[2022-11-07 09:39] VITALS: BP 130/86
--- NOTE | 2022-11-07 09:40 | ED Fever ---
History of Present Illness General Stated Complaint: FEVER | BODY ACHES | SORE THROAT History of Present Illness Date Seen by Provider: Nov 07, 2022 Time Seen by Provider: 09:35 Initial Comments 32-year-old female presents with subjective fever, sore throat, body aches chills that started last night. She reports she is just coming out of sore throat, some swollen lymph nodes on the left side of her neck. No reports of cough nausea or vomiting. Allergies and Home Medications Allergies Coded Allergies: No Known Drug Allergies (Unverified , 08/23/10) Patient Home Medication List Home Medication List Reviewed: Yes Alprazolam (Xanax) 0.5 Mg Tablet, 0.5 MG PO DAILY PRN for ANXIETY Prescribed by: CARI HANLEY on 03/20/21 1555 Amlodipine Besylate (Amlodipine Besylate) 5 Mg Tablet, 5 MG PO DAILY Prescribed by: IZA PEREZ on 06/05/13 0911 Cefuroxime Axetil (Cefuroxime) 250 Mg Tablet, 250 MG PO BID Prescribed by: CARI HANLEY on 08/26/21 1224 Ciprofloxacin (Cipro) 500 Mg Tablet, 1 TAB PO BID Prescribed by: NAYELY QUINTERO on 06/15/13 0936 Docusate Sodium (Colace Capsule) 100 Mg Cap, 100 MG PO BID Prescribed by: ALTAF SLADE on 05/25/13 1045 Ferrous Sulfate (Ferrous Sulfate) 325 Mg Tablet, 325 MG PO DAILY Prescribed by: ALTAF SLADE on 05/25/13 1045 Ibuprofen (Motrin) 600 Mg Tab, 600 MG PO Q6H PRN Prescribed by: ALTAF SLADE on 05/25/13 1045 Ibuprofen (Ibuprofen) 800 Mg Tablet, 800 MG PO Q8H PRN for PAIN Prescribed by: JENNA GROSSMAN on 04/05/17 2135 Ibuprofen (Ibuprofen) 800 Mg Tablet, 800 MG PO Q8H PRN for PAIN-MILD Prescribed by: PALMER FOSTER on 04/03/19 0901 Ibuprofen (Ibuprofen) 800 Mg Tablet, 800 MG PO Q8H PRN for PAIN Prescribed by: CARI HANLEY on 03/20/21 1554 Methocarbamol (Methocarbamol) 750 Mg Tablet, 750 MG PO Q6-8HR PRN for PAIN- MODERATE (5-7) Prescribed by: CARI HANLEY on 03/20/21 1554 Metronidazole (Flagyl 500 Mg) 500 Mg Tab, 1 EACH PO BID Prescribed by: NAYELY QUINTERO on 06/15/13 0936 Rizatriptan Benzoate (Maxalt) 10 Mg Tablet, 10 MG PO DAILY PRN for HEADACHE Prescribed by: CARI HANLEY on 08/26/21 1258 Sulfamethoxazole/Trimethoprim (Bactrim Ds Tablet) 1 Each Tablet, 1 EACH PO BID Prescribed by: PALMER FOSTER on 04/03/19 0851 Review of Systems Review of Systems Constitutional: chills, fever EENTM: throat pain; No throat swelling Respiratory: No cough, No short of breath Cardiovascular: No chest pain Gastrointestinal: No abdominal pain, No nausea, No vomiting Musculoskeletal: see HPI Skin: no symptoms reported Psychiatric/Neurological: No Symptoms Reported Past Yzhufde-Hvqapn-Qsmbzi Hx Immunizations Up To Date Tetanus Booster (TDap): Unknown First/Initial COVID19 Vaccinat: YES Second COVID19 Vaccination Monty: YES Seasonal Allergies Seasonal Allergies: No Past Medical History Surgery/Hospitalization HX: HTN, DM2 Surgeries: Yes (05/2013) Section Respiratory: No Cardiac: No Neurological: No Reproductive Disorders: No Sexually Transmitted Disease: No HIV/AIDS: No Gastrointestinal: Yes Chronic Constipation Musculoskeletal: No Endocrine: No Cancer: No Psychosocial: No Integumentary: No Blood Disorders: No Physical Exam Vital Signs - First Documented 11/07/22 09:39 Temp 39.0 Pulse 109 Resp 20 B/P (MAP) 130/86 (101) Pulse Ox 97 O2 Delivery Room Air Capillary Refill : Height: 5'4.00" Weight: 380lbs. oz. [id number]; 68.00 BMI Method:Stated General Appearance: WD/WN, no apparent distress HEENT: PERRL/EOMI, pharyngeal erythema Neck: lymphadenopathy (L) Respiratory: lungs clear, normal breath sounds, no respiratory distress Cardiovascular: normal peripheral pulses Gastrointestinal: non tender, soft Extremities: non-tender, normal inspection Neurologic/Psychiatric: no motor/sensory deficits, alert, normal mood/affect, oriented x 3 Skin: normal color, warm/dry Progress/Results/Core Measures Suspected Sepsis SIRS Temperature: Pulse: Respiratory Rate: Blood Pressure / Mean: Results/Orders Lab Results Laboratory Tests Test 11/07/22 10:05 Range/Units Influenza Type A (RT-PCR) Not Detected Not Detecte Influenza Type B (RT-PCR) Not Detected Not Detecte SARS-CoV-2 RNA (RT-PCR) Not Detected Not Detecte Group A Streptococcus Screen POSITIVE H NEGATIVE My Orders Orders - CARLEE STRICKLAND DO Rapid Strep A Screen (11/07/22 09:50) Influenza A And B By Pcr (11/07/22 09:50) Covid 19 Inhouse Test (11/07/22 09:50) Penicillin G Proc/Justin 1.2 Mu (Bicillin (11/07/22 10:45) Medications Given in ED Current Medications Medications Dose Ordered Sig/Gianni Route Start Time Stop Time Status Last Admin Dose Admin Penicillin G Procaine/ Benzathine 1,200,000 unit ONCE ONCE IM 11/07/22 10:45 11/07/22 10:46 DC 11/07/22 10:52 1,200,000 UNIT Vital Signs/I&O 11/07/22 09:39 Temp 39.0 Pulse 109 Resp 20 B/P (MAP) 130/86 (101) Pulse Ox 97 O2 Delivery Room Air Capillary Refill : Progress Note : Progress Note Patient's labs were reviewed. She was negative for influenza and COVID. However she was positive for strep. Discussed different treatment options including oral antibiotics versus penicillin injection. She would prefer just to receive the shot. Discussed with her risk benefits. She voiced understanding. Patient was provided a shot and educated that it still may take a couple days for her symptoms to improve. She was stable and discharged Departure Impression Primary Impression: Streptococcal pharyngitis Disposition: 01 HOME, SELF-CARE Condition: Stable Departure-Patient Inst. Ref[place]: [facility] [place] Primary Care Physician Patient Instructions: Strep Throat ED Add. Discharge Instructions: Tylenol or ibuprofen as needed for fever, chills. Salt water gargles or ove [id number] sore throat lozenges as needed for discomfort. Follow-up with your primary care provider if symptoms have not improved over the next 7 to 10 days. Work/School Note: Work Release Form Date Seen in the Emergency Department: Nov 07, 2022 Return to Work: Nov 09, 2022 Restrictions: Return-No Fever (24hrs) CARLEE STRICKLAND DO Nov 07, 2022 09:40
[2022-11-07] MEDS ORDERED: PEN G PROC/BENZATH 1.2 M UNITS/2 ml (BICILLIN C-R) SYR IM ONE (10:45)
== END 2022-11-07 11:15 | disposition home or self-care (01) ==
LOC: EDUNIT# 09:23 → ER 09:25
DX: J02.0 Streptococcal pharyngitis (principal); Z20.822 Contact with and (suspected) exposure to COVID-19
CPT/HCPCS: 87430; 87636; 99284

== ENCOUNTER 2023-01-23 08:19 | Emergency (ER) | payer OTHER ==
[~2023-01-23] VITALS: Ht 162.6 cm; Wt 163.3 kg
--- NOTE | 2023-01-23 08:42 | ED Chest Pain ---
General Stated Complaint: CHEST PAINS | RT SHOULDER PAIN Source: patient Exam Limitations: no limitations History of Present Illness Date Seen by Provider: January 23, 2023 Time Seen by Provider: 08:42 Initial Comments Patient is a 32-year-old female who presents to the emergency room with a chief complaint of right shoulder pain for about a week as well as some "piercing" midsternal pain that has come off and on for quite a while now. Patient states that she was throwing a ball with her child about a week and a half ago. She states that shoulder pain has gradually come on to now it is constant. It is waking her up from sleep. She has taken some ibuprofen without much relief of symptoms. She denies associated shortness of breath, nausea or sweating. Nothing seems to bring on the chest pain particularly. She was very concerned because of her weight, morbid obesity as well and has her current history of diabetes and hypertension. She is not a smoker. No first-degree family members with coronary artery disease. The shoulder pain is reproducible, she has to "favor" that shoulder. No numbness weakness or tingling. She has some Biofreeze at home but has not used that. Timing/Duration: 1 week, constant Severity/Quality: severe (Right shoulder), sharp (Chest) Radiation: no radiation Activities at Onset: none Prior CP/Workup: no prior chest pain, no prior cardiac workup ASA po ORDER DISPATCHER: No NTG SL ORDER DISPATCHER: No Associated Symptoms: denies symptoms Allergies and Home Medications Allergies Coded Allergies: No Known Drug Allergies (Unverified , 08/23/10) Patient Home Medication List Home Medication List Reviewed: Yes Alprazolam (Xanax) 0.5 Mg Tablet, 0.5 MG PO DAILY PRN for ANXIETY Prescribed by: CARI HANLEY on 03/20/21 1555 Amlodipine Besylate (Amlodipine Besylate) 5 Mg Tablet, 5 MG PO DAILY Prescribed by: IZA PEREZ on 06/05/13 0911 Cefuroxime Axetil (Cefuroxime) 250 Mg Tablet, 250 MG PO BID Prescribed by: CARI HANELY on 08/26/21 1224 Ciprofloxacin (Cipro) 500 Mg Tablet, 1 TAB PO BID Prescribed by: NAYELY QUINTERO on 06/15/13 0936 Docusate Sodium (Colace Capsule) 100 Mg Cap, 100 MG PO BID Prescribed by: ALTAF SLADE on 05/25/13 1045 Ferrous Sulfate (Ferrous Sulfate) 325 Mg Tablet, 325 MG PO DAILY Prescribed by: ALTAF SLADE on 05/25/13 1045 Ibuprofen (Motrin) 600 Mg Tab, 600 MG PO Q6H PRN Prescribed by: ALTAF SLADE on 05/25/13 1045 Ibuprofen (Ibuprofen) 800 Mg Tablet, 800 MG PO Q8H PRN for PAIN Prescribed by: JENNA GROSSMAN on 04/05/17 2135 Ibuprofen (Ibuprofen) 800 Mg Tablet, 800 MG PO Q8H PRN for PAIN-MILD Prescribed by: PALMER FOSTER on 04/03/19 0901 Ibuprofen (Ibuprofen) 800 Mg Tablet, 800 MG PO Q8H PRN for PAIN Prescribed by: CARI HANLEY on 03/20/21 1554 Methocarbamol (Methocarbamol) 750 Mg Tablet, 750 MG PO Q6-8HR PRN for PAIN- MODERATE (5-7) Prescribed by: CARI HANLEY on 03/20/21 1554 Metronidazole (Flagyl 500 Mg) 500 Mg Tab, 1 EACH PO BID Prescribed by: NAYELY QUINTERO on 06/15/13 0936 Rizatriptan Benzoate (Maxalt) 10 Mg Tablet, 10 MG PO DAILY PRN for HEADACHE Prescribed by: CARI HANLEY on 08/26/21 1258 Sulfamethoxazole/Trimethoprim (Bactrim Ds Tablet) 1 Each Tablet, 1 EACH PO BID Prescribed by: PALMER FOSTER on 04/03/19 0851 Review of Systems Review of Systems Constitutional: see HPI EENTM: No Symptoms Reported Respiratory: No Symptoms Reported Cardiovascular: Chest Pain Gastrointestinal: No Symptoms Reported Genitourinary: No Symptoms Reported Musculoskeletal: joint pain (Right shoulder) Skin: no symptoms reported Psychiatric/Neurological: Anxiety All Other Systems Reviewed Negative Unless Noted: Yes Past Hhpkdhp-Fxlzyg-Oqknxp Hx Immunizations Up To Date Tetanus Booster (TDap): Unknown First/Initial COVID19 Vaccinat: YES Second COVID19 Vaccination Monty: YES Third COVID19 Vaccination Date: YES Seasonal Allergies Seasonal Allergies: No Past Medical History Surgery/Hospitalization HX: HTN, DM2 Surgeries: Yes (05/2013) Section Respiratory: No Cardiac: No Neurological: No Reproductive Disorders: No Sexually Transmitted Disease: No HIV/AIDS: No Gastrointestinal: Yes Chronic Constipation Musculoskeletal: No Endocrine: No Cancer: No Psychosocial: No Integumentary: No Blood Disorders: No Physical Exam Vital Signs Vital Signs - First Documented 01/23/23 08:30 Temp 35.8 Pulse 81 Resp 17 B/P (MAP) 177/77 (110) O2 Delivery Room Air Capillary Refill : Height, Weight, BMI Height: 5'4.00" Weight: 380lbs. oz. 172.570853pu; 70.00 BMI Method:Stated General Appearance: No Apparent Distress, WD/WN, Obese HEENT: PERRL/EOMI Respiratory: Lungs Clear, Normal Breath Sounds, No Accessory Muscle Use, No Respiratory Distress Cardiovascular: Regular Rate, Rhythm, Normal Peripheral Pulses (2+ radial bilaterally), Other (No reproducible chest wall pain) Gastrointestinal: Non Tender, Soft Extremity: Normal Capillary Refill, Normal Inspection, Normal Range of Motion, Other (Tenderness over the long head of the biceps right shoulder. Good range of motion, neurovascularly intact) Neurologic/Psychiatric: Alert, Oriented x3, No Motor/Sensory Deficits, Normal Mood/Affect, urban planner II-XII Norm as Tested Skin: Normal Color, Warm/Dry Progress/Results/Core Measures Results/Orders My Orders Orders - NESTOR CARLISLE MD Ekg Tracing (01/23/23 08:30) Vital Signs/I&O 01/23/23 08:30 Temp 35.8 Pulse 81 Resp 17 B/P (MAP) 177/77 (110) O2 Delivery Room Air Progress Progress Note : Time: 08:58 Progress Note Patient seen and evaluated. Evaluation today includes physical exam and EKG. Patient exam is consistent with biceps tendinitis in the right shoulder. Perfectly reproducible. Patient is neurologically intact to the right upper extremity. No chest wall pain. Her EKG shows normal sinus rhythm without ectopy, ST segment change. Low clinical suspicion for acute coronary syndrome. She does have risk factors of obesity hypertension and diabetes. Anticipating bariatric surgery in the fall. She is a non-smoker. The chest pain is not exertional. No associated symptoms. She describes it as "piercing". Consideration for labs and imaging, shared medical decision making. The patient does not believe she needs labs and imaging at this point and I do not either. We will treat with 5 days of prednisone and recommended Voltaren gel for the shoulder pain. I have cautioned her on carbohydrate intake due to having diabetes. She verbalized understanding of the plan of care. All questions are sought and answered. Initial ECG Impression Date: January 23, 2023 Initial ECG Impression Time: 08:45 Initial ECG Rate: 70 Initial ECG Rhythm: Normal Sinus Initial ECG Intervals: Normal Initial ECG Impression: Normal Departure Impression Primary Impression: Biceps tendonosis of right shoulder Additional Impression: Chest pain Qualified Codes: R07.9 - Chest pain, unspecified Disposition: HOME, SELF-CARE Condition: Stable Departure-Patient Inst. Decision time for Depature: 09:01 Referrals: JEN CARRASQUILLO DO (PCP/Family) Primary Care Physician Patient Instructions: Biceps Tendinopathy Add. Discharge Instructions: Take the prednisone 50 mg once daily for the next 5 days. Watch your carbohydrate intake. Steroids can increase your blood sugar. Check your sugars often. Steroids can also increase your appetite, energy and altered mood a little bit. Use [id number] Voltaren/diclofenac gel on your right shoulder. Please follow packaging instructions. If you have any new, concerning or emergent complaints, please return to the emergency room for reevaluation. Please follow up with your primary care doctor. Scripts Prednisone (Prednisone) 50 Mg Tab 50 MG PO DAILY for 5 Days, #5 TAB Prov: NESTOR CARLISLE MD 01/23/23 Copy Copies To 1: JEN CARRASQUILLO KATHRYN M MD January 23, 2023 08:42
[2023-01-23] MEDS ORDERED: PRD50T PO (09:02)
[2023-01-23 09:09] VITALS: BP 161/82
== END 2023-01-23 09:09 | disposition home or self-care (01) ==
LOC: EDUNIT# 08:19 → ER 08:22
DX: M75.21 Bicipital tendinitis, right shoulder (principal); R07.9 Chest pain, unspecified; E66.01 Morbid (severe) obesity due to excess calories; Z68.45 Body mass index [BMI] 70 or greater, adult
CPT/HCPCS: 93005

== ENCOUNTER 2023-05-15 14:58 | Outpatient (RCR) | payer OTHER ==
[~2023-05-15 14:58] MED LIST changes: +PRD50T PO
== END 2023-05-18 | disposition home or self-care (01) ==
PROVIDERS: ATTEND Podiatrist Foot & Ankle Surgery
DX: M76.71 Peroneal tendinitis, right leg (principal)

== ENCOUNTER 2023-07-10 15:10 | Outpatient (RCR) | payer OTHER | END 2023-07-18 | disposition home or self-care (01) | PROVIDERS: ATTEND Podiatrist Foot & Ankle Surgery | DX: M76.71 Peroneal tendinitis, right leg (principal); I10 Essential (primary) hypertension; E11.9 Type 2 diabetes mellitus without complications ==